=== PATIENT | male | born 1945 | race Caucasian/White ===

== ENCOUNTER → 2017-12-16 | Day surgery (SDC) | payer MEDICARE ==
[~2017-12-16] MED LIST: AMLO10TA6 PO; CALC250T PO; CITA20TA6 PO; DOXA2TAB2 PO; GARL400T4 PO; GLIP-112 PO; HYDR12.53 PO; IRBE300T3 PO; IV RINGERS,LACTATED 1000ML 1,000 ML IV SCH; LIDOCAINE 2% PF 2ML VIAL. ONE; LISI-334 PO; MAGN400C PO; METF10007 PO; MULT-658 PO; OXYB5TAB7 PO; PARO20TA3 PO; PROPOFOL 40 ML IV ONE
[2017-12-16 10:32] VITALS: BP 120/56
== END | disposition home or self-care (01) ==
LOC: ENDOS 07:45
PROVIDERS: ATTEND Internal Medicine Gastroenterology
DX: Z12.11 Encounter for screening for malignant neoplasm of colon (principal); K64.0 First degree hemorrhoids; D17.79 Benign lipomatous neoplasm of other sites; E11.9 Type 2 diabetes mellitus without complications; I10 Essential (primary) hypertension; E66.9 Obesity, unspecified; E11.319 Type 2 diabetes mellitus with unspecified diabetic retinopathy without macular edema; F32.89 Other specified depressive episodes; Z86.010 Personal history of colon polyps; Z82.3 Family history of stroke; Z79.84 Long term (current) use of oral hypoglycemic drugs; Z79.899 Other long term (current) drug therapy; Z79.82 Long term (current) use of aspirin; R60.0 Localized edema
CPT/HCPCS: 45378; J2001; J2704

== ENCOUNTER 2018-05-01 22:50 | Inpatient (IN) | payer MEDICARE ==
[~2018-05-01] VITALS: Ht 172.7 cm; Wt 150.6 kg
[~2018-05-01 22:50] MED LIST changes: -AMLO10TA6 PO; +AMLO10TA8 PO; -GARL400T4 PO; -GLIP-112 PO; +GLIP10TA24 PO; -HYDR12.53 PO; +HYDR12.575 PO; -IV RINGERS,LACTATED 1000ML 1,000 ML IV SCH; -LIDOCAINE 2% PF 2ML VIAL. ONE; -PROPOFOL 40 ML IV ONE; +[UNRECOGNIZED DRUG - CODE] PO
[2018-05-02] MEDS ORDERED: PIPERACILLIN/TAZOBACTAM 3.375 GM in IV NORMAL SALINE 50ML 50 ML IV ONE (00:30)
[2018-05-02] MEDS ORDERED: IV NORMAL SALINE 1000ML BAG 1,000 ML IV ONE ×2 (00:30→14:45)
[2018-05-02] MEDS ORDERED: fentaNYL PF VIAL 100 MCG/2 ML VIAL IV ONE (00:30)
[2018-05-02] MEDS ORDERED: VANCOMYCIN 2 GM in IV NORMAL SALINE 500ML BAG 500 ML IV ONE (00:30)
[2018-05-02] MEDS ORDERED: fentaNYL PF VIAL 100 MCG/2 ML VIAL ONE (01:11)
[2018-05-02 04:19] VITALS: BP 156/61
[2018-05-02] MEDS ORDERED: METF500T16 PO (05:01)
[2018-05-02] MEDS: fentaNYL PF VIAL 100 MCG/2 ML VIAL IV PRN ×3 (06:20→21:33)
[2018-05-02 06:43] LABS: ALBUMIN 3.4 g/dL (3.4-5.0); ALBUMIN/GLOBULIN RATIO 0.9 (1.0-1.7); CALCIUM 9.6 mg/dL (8.5-10.1); CREATININE 1.7 mg/dL (0.7-1.3); GFR 39.8; POTASSIUM 4.1 mmol/L (3.5-5.1); TOTAL BILIRUBIN 0.6 mg/dL (0.2-1.0)
[2018-05-02 06:48] LABS: BASO % 0 % (0-3); EOS % 0 % (0-3); HEMATOCRIT 27.5 % (39.0-53.0); HEMOGLOBIN 9.1 g/dL (13.0-17.5); LYMPH # 0.1 x10^3/uL (1.0-4.8); LYMPH % 2 % (24-48); MEAN CORPUSCULAR HEMOGLOBIN 31 pg (25-35); MEAN CORPUSCULAR HGB CONC 33 g/dL (31-37); MEAN CORPUSCULAR VOLUME 93 fL (79-100); MONO # 0.4 x10^3/uL (0.0-1.1); MONO % 5 % (0-9); NEUT # 7.7 x10^3uL (1.8-7.7); NEUT % 93 % (31-73); PLATELET COUNT 132 x10^3/uL (140-400); RED BLOOD COUNT 2.97 x10^6/uL (4.30-5.70); RED CELL DISTRIBUTION WIDTH 14.5 % (11.5-14.5); WHITE BLOOD COUNT 8.2 x10^3/uL (4.0-11.0)
[2018-05-02 06:50] LABS: PROTHROMBIN TIME PATIENT 14.3 SEC (11.7-14.0)
[2018-05-02 06:53] LABS: BILIRUBIN,URINE NEGATIVE (NEG); CLARITY,URINE CLEAR; COLOR,URINE YELLOW
[2018-05-02 06:54] LABS: BACTERIA,URINE 0 /HPF (0-FEW); HYALINE CASTS, URINE FEW /HPF; NITRITE,URINE NEGATIVE (NEG); PROTEIN,URINE NEGATIVE (NEG-TRACE); RBC,URINE OCC /HPF (0-2); SQUAMOUS EPITHELIAL CELL,UR FEW /LPF; UROBILINOGEN,URINE 0.2 mg/dL (0.2 mg/dL); WBC,URINE OCC /HPF (0-4)
[2018-05-02 07:00] VITALS: BP 138/58
--- NOTE | 2018-05-02 07:51 | RAD ---
Portable chest, 05/02/2018: HISTORY: Lower extremity swelling, check for fluid in chest. The heart is at the upper limits of normal in size. The pulmonary vascularity is normal. No pulmonary infiltrate is seen. There is no evidence of pleural fluid. Mild spurring is present in the spine. IMPRESSION: No acute cardiopulmonary abnormality is detected. Electronically signed by: Shmuel Cerna MD (05/02/2018 7:48 AM) [facility]
[2018-05-02 09:18] LABS: % BANDS 32 % (0-9); % LYMPHS 2 % (24-48); % MONOS 7 % (0-10); % SEGS 59 % (35-66)
[2018-05-02 09:19] LABS: ACANTHOCYTES OCC; BURR CELLS FEW; OVALOCYTES FEW; PLT ESTIMATE ADEQUATE (ADEQUATE); SCHISTOCYTES OCC; TEAR DROP CELLS OCC
[2018-05-02] MEDS ORDERED: ONDANSETRON PF 4 MG/2 ML VIAL. IV PRN (09:30)
[2018-05-02] MEDS ORDERED: ONDANSETRON ODT 4 MG TAB.RAPDIS. PO PRN (09:30)
[2018-05-02] MEDS ORDERED: hydroCHLOROthiazide 12.5 MG CAPSULE PO SCH (10:00)
[2018-05-02] MEDS ORDERED: CITALOPRAM 20 MG TABLET. PO SCH (10:00)
[2018-05-02] MEDS: PARoxetine 20 MG TABLET PO SCH (10:11)
[2018-05-02] MEDS: ACETAMINOPHEN 500 MG TABLET PO PRN (10:11)
[2018-05-02] MEDS: glipiZIDE ER 2.5 MG TAB.ER.24 PO SCH (10:11)
[2018-05-02] MEDS: CALCIUM CARBONATE 500 MG TABLET PO SCH (10:11)
[2018-05-02] MEDS: MAGNESIUM OXIDE 400 MG TABLET PO SCH (10:11)
[2018-05-02] MEDS: MULTIVITAMIN with MINERAL TABLET. PO SCH (10:11)
[2018-05-02] MEDS: LISINOPRIL 20 MG TABLET PO SCH (10:11)
[2018-05-02] MEDS: amLODIPine BESYLATE 10 MG TABLET PO SCH (10:11)
[2018-05-02] MEDS: OXYBUTYNIN CHLORIDE 5 MG TABLET PO SCH (10:12)
[2018-05-02] MEDS: DOXAZOSIN MESYLATE 1 MG TABLET. PO SCH (10:12)
[2018-05-02 11:00] VITALS: BP 117/40
[2018-05-02] MEDS: VANCOMYCIN PER PHARMACY MC PRN ×2 (13:21→13:45)
--- NOTE | 2018-05-02 13:43 | NUR ---
Pharmacy Vancomycin Dosing Note S:Consulted to monitor and dose vancomycin started 05/02/18. O:AMRITA BONILLA is a 72 year old M with Cellulitis . Height: 5 feet, 8 inches Weight: 150.231588 kg [place] Body Weight: 68.40 Adjusted Body Weight: 101.12 Dosing Weight: Actual Other Antibiotics: LABS: Last BUN: 35 Last Creatinine: 1.7 Creatinine Clearance: 56.2 mL/min Last WBC: 8.2 Last Procalcitonin: Tmax (past 24 hours): 98.2 Microbiology: I/O: Drug Levels: Last level: on at Last dose given 05/02/18 at 0030 Vancomycin Dosing: Loading Dose: 2000 mg x1 Dosing Weight: Actual Target Trough: 10-20 A: Based on weight and est. CrCl P: 1. Begin Vancomycin 2000 mg IV q24h. 2. Follow up Trough level on 05/04/18 at 0030 3. Pharmacy will continue to monitor, follow and adjust therapy as needed. Rodriguez Munson, [facility], 05/02/18 [id number]
--- NOTE | 2018-05-02 14:22 | NUR ---
SW following pt for anticipated dc needs. Chart reviewed. Pt lives at home with spouse/family and is on room air. PT/OT pending. SW will await for PT/OT recommendation to assess dc needs. Will continue to follow.
--- NOTE | 2018-05-02 14:50 | PDOC1 ---
History and Physical Date of Admission Date of Admission DATE: 05/02/18 TIME: 14:44 Identification/Chief Complaint Chief Complaint Right leg redness and rash Source Source: Caregiver, Chart review, Patient History of Present Illness History of Present Illness 72-year-old male, WBC obese, lives with , diabetes type 2 on OHA previously on insulin but with good A1c was taken off of insulin by PCP. Acute onset fast spreading rash started from the right dorsal foot up to the right leg. He claims there is a cat and also a visitor cat Which might have scratched his leg or might have had fleas and he thought he saw or felt fleas nibbling his right leg. In any case some temperatures at home 102, afebrile here. No leukocytosis. Sedimentation rate is pending. No history of cellulitis in the past. Diabetes again with unknown hemoglobin A1c but recently taken off of insulin Fell off or rolled over this morning and has not beared weight, concerns about injuring right ankle Creat 1,.7, PCP Dr Alvarez, news to him, JUst had labs at PCP office recently and was told "everything fine" Past Medical History Cardiovascular: HTN, Hyperlipidemia Pulmonary: Bronchitis Endocrine: Diabetes Past Surgical History Past Surgical History: No pertinent history Family History Family History: High Cholestrol, Hypertension Social History Smoke: No ALCOHOL: none Drugs: None Current Medications Current Medications Current Medications Fentanyl Citrate (Fentanyl 2ml Vial) 100 mcg STK-MED ONCE .ROUTE ; Start at 01:11; Stop 05/02/18 at 02:50; Status DC Sodium Chloride 1,000 ml @ 100 mls/hr 1X ONCE IV Last administered on at 00:30; Start 05/02/18 at 00:30; Stop 05/02/18 at 10:29; Status DC Fentanyl Citrate (Fentanyl 2ml Vial) 25 mcg 1X ONCE IV Last administered on 03/08at 00:30; Start 05/02/18 at 00:30; Stop 05/02/18 at 03:06; Status DC Vancomycin HCl 2 gm/Sodium Chloride 500 ml @ 250 mls/hr 1X ONCE IV Last administered on 05/02/18at 00:30; Start 05/02/18 at 00:30; Stop 05/02/18 at 03:06 ; Status DC Piperacillin Sod/ Tazobactam Sod 3.375 gm/Sodium Chloride 50 ml @ 100 mls/hr 1X ONCE IV Last administered on 05/02/18 00:30; Start 05/02/18 at 00:30; Stop 05/02/18 at 03:06; Status DC Vancomycin HCl (Vanco Per Pharmacy) 1 each PRN DAILY PRN MC SEE COMMENTS Last administered on 05/02/18at 13:45; Start 05/02/18 at 00:30 Fentanyl Citrate (Fentanyl 2ml Vial) 50 mcg PRN Q2HR PRN IV PAIN Last administered on 05/02/18at 06:20; Start 05/02/18 at 06:15 Acetaminophen (Tylenol) 500 mg PRN Q6HRS PRN PO MILD PAIN / TEMP Last administered on 05/02/18at 10:11; Start 05/02/18 at 09:30 Ondansetron HCl (Zofran) 4 mg PRN Q6HRS PRN IV NAUSEA/VOMITING; Start 05/02/18 at 09:30 Ondansetron HCl (Zofran Odt) 4 mg PRN Q6HRS PRN PO NAUSEA/VOMITING; Start 05/02 at 09:30 Amlodipine Besylate (Norvasc) 10 mg DAILY PO Last administered on 05/02/18at 10: 11; Start 05/02/18 at 10:00 Citalopram Hydrobromide (CeleXA) 20 mg DAILY PO ; Start 05/02/18 at 10:00; Status Cancel Hydrochlorothiazide (Microzide) 25 mg DAILY PO ; Start 05/02/18 at 10:00; Stop 05/02/18 at 10:00; Status DC Oxybutynin Chloride (Ditropan) 5 mg DAILY PO Last administered on 05/02/18at 10: 12; Start 05/02/18 at 10:00 Calcium Carbonate/ Glycine (Oscal) 500 mg DAILY PO Last administered on at 10:11; Start 05/02/18 at 10:00 Doxazosin Mesylate (Cardura) 2 mg DAILY PO Last administered on 05/02/18at 10:12 ; Start 05/02/18 at 10:00 Non-Formulary Medication (Garlic ) 400 mg DAILY PO ; Start 05/03/18 at 09:00; Status UNV Glipizide (Glucotrol Er) 10 mg DAILY08 PO Last administered on 05/02/18at 10:11 ; Start 05/02/18 at 10:00 Magnesium Oxide (Magnesium Oxide) 400 mg DAILY PO Last administered on at 10:11; Start 05/02/18 at 10:00 Multivitamins (Thera M Plus) 1 tab DAILY PO Last administered on 05/02/18at 10: 11; Start 05/02/18 at 10:00 Paroxetine HCl (Paxil) 20 mg DAILY PO Last administered on 05/02/18at 10:11; Start 05/02/18 at 10:00 Lisinopril (Prinivil) 20 mg DAILY PO Last administered on 05/02/18at 10:11; Start 05/02/18 at 10:00 Hydrochlorothiazide (Hydrodiuril) 25 mg DAILY PO ; Start 05/02/18 at 10:00 Vancomycin HCl 2 gm/Sodium Chloride 500 ml @ 250 mls/hr Q24H IV ; Start at 01:00 Vancomycin HCl (Vancomycin Trough Level) 1 each 1X ONCE MC ; Start 05/04/18 at 00:30; Stop 05/04/18 at 00:31 Active Scripts Active Reported Metformin Hcl 500 Mg Tablet 500 Mg PO DAILYAC Garlic 400 Mg Tablet 400 Mg PO DAILY Magnesium (Magnesium Oxide) 400 Mg Capsule 1 Cap PO DAILY Calcium Citrate 250 Mg Tablet 600 Mg PO DAILY Centrum Silver Tablet (Multivits-Min/Fa/Lycopene/Lut) 1 Each Tablet 1 Each PO DAILY Irbesartan 300 Mg Tablet 300 Mg PO DAILY Glipizide Er (Glipizide) 10 Mg Tab.er.24 1 Tab PO DAILY Oxybutynin Chloride 5 Mg Tablet 1 Tab PO DAILY Amlodipine Besylate 10 Mg Tablet 10 Mg PO DAILY Paroxetine Hcl 20 Mg Tablet 1 Tab PO DAILY Hydrochlorothiazide Capsule (Hydrochlorothiazide) 12.5 Mg Capsule 25 Mg PO DAILY Doxazosin Mesylate 2 Mg Tablet 1 Tab PO DAILY Lisinopril 20 Mg Tablet 1 Tab PO DAILY Allergies Allergies: Coded Allergies: No Known Drug Allergies (Unverified , 12/16/17) ROS Review of System As per history of present illness, the rest of ROS 14 point negative Physical Exam General: Alert, Oriented X3, Cooperative, No acute distress HEENT: PERRLA, EOMI Lungs: Clear to auscultation, Normal air movement Heart: S1S2, RRR, no thrills, no rubs, no gallops, no murmurs Cardiovascular: S1, S2 Abdomen: Normal bowel sounds, Soft, No tenderness, No hepatosplenomegaly, No masses Male Genitals Exam: normal genitalia, normal prostate Rectal Exam: not examined PELVIC: Nml ext genitalia Skin: Other (right leg has erythematous red flat rash with no skin breakage or foul-smelling discharge, also some rash on the right dorsal foot, long toenails) Neuro: Normal gait, Normal speech, Strength at 5/5 X4 ext, Normal tone, Sensation intact, Cranial nerves 3-12 NL, Reflexes 2+ Psych/Mental Status: Mental status NL, Mood NL Vitals Vitals Vital Signs Date Time Temp Pulse Resp B/P (MAP) Pulse Ox O2 Delivery O2 Flow Rate FiO2 05/02/18 11:00 97.8 68 18 117/40 (65) 98 Room Air 97.8 05/02/18 08:00 1.5 Labs Labs Laboratory Tests Test 05/01/18 23:05 05/02/18 00:40 05/02/18 07:21 05/02/18 09:50 White Blood Count 8.2 x10^3/uL (4.0-11.0) Red Blood Count 2.97 x10^6/uL (4.30-5.70) Hemoglobin 9.1 g/dL (13.0-17.5) Hematocrit 27.5 % (39.0-53.0) Mean Corpuscular Volume 93 fL (79-100) Mean Corpuscular Hemoglobin 31 pg (25-35) Mean Corpuscular Hemoglobin Concent 33 g/dL (31-37) Red Cell Distribution Width 14.5 % (11.5-14.5) Platelet Count 132 x10^3/uL (140-400) Neutrophils (%) (Auto) 93 % (31-73) Lymphocytes (%) (Auto) 2 % (24-48) Monocytes (%) (Auto) 5 % (0-9) Eosinophils (%) (Auto) 0 % (0-3) Basophils (%) (Auto) 0 % (0-3) Neutrophils # (Auto) 7.7 x10^3uL (1.8-7.7) Lymphocytes # (Auto) 0.1 x10^3/uL (1.0-4.8) Monocytes # (Auto) 0.4 x10^3/uL (0.0-1.1) Eosinophils # (Auto) 0.0 x10^3/uL (0.0-0.7) Basophils # (Auto) 0.0 x10^3/uL (0.0-0.2) Segmented Neutrophils % 59 % (35-66) Band Neutrophils % 32 % (0-9) Lymphocytes % 2 % (24-48) Monocytes % 7 % (0-10) Platelet Estimate Adequate (ADEQUATE) Tear Drop Cells Occ Ovalocytes Few Iron Cells Few Acanthocytes Occ Schistocytes Occ Prothrombin Time 14.3 SEC (11.7-14.0) Prothromb Time International Ratio 1.1 (0.8-1.1) Activated Partial Thromboplast Time 29 SEC (24-38) Urine Collection Type Unknown Urine Color Yellow Urine Clarity Clear Urine pH 5.0 Urine Specific [place] 1.020 Urine Protein Negative mg/dL (NEG-TRACE) Urine Glucose (UA) >=1000 mg/dL (NEG) Urine Ketones (Stick) Negative mg/dL (NEG) Urine Blood Trace (NEG) Urine Nitrite Negative (NEG) Urine Bilirubin Negative (NEG) Urine Urobilinogen Dipstick 0.2 mg/dL (0.2 mg/dL) Urine Leukocyte Esterase Negative (NEG) Urine RBC Occ /HPF (0-2) Urine WBC Occ /HPF (0-4) Urine Squamous Epithelial Cells Few /LPF Urine Bacteria 0 /HPF (0-FEW) Urine Hyaline Casts Few /HPF Urine Mucus Mod /LPF Sodium Level 139 mmol/L (136-145) Potassium Level 4.1 mmol/L (3.5-5.1) Chloride Level 103 mmol/L (98-107) Carbon Dioxide Level 21 mmol/L (21-32) Anion Gap 15 (6-14) Blood Urea Nitrogen 35 mg/dL (8-26) Creatinine 1.7 mg/dL (0.7-1.3) Estimated GFR (Cockcroft-Gault) 39.8 BUN/Creatinine Ratio 21 (6-20) Glucose Level 258 mg/dL (70-99) Calcium Level 9.6 mg/dL (8.5-10.1) Total Bilirubin 0.6 mg/dL (0.2-1.0) Aspartate Amino Transf (AST/SGOT) 17 U/L (15-37) Alanine Aminotransferase (ALT/SGPT) 18 U/L (16-63) Alkaline Phosphatase 56 U/L (46-116) Creatine Kinase 138 U/L (39-308) Troponin I Quantitative 0.054 ng/mL (0.000-0.055) Total Protein 7.0 g/dL (6.4-8.2) Albumin 3.4 g/dL (3.4-5.0) Albumin/Globulin Ratio 0.9 (1.0-1.7) Lactic Acid Level 1.4 mmol/L (0.4-2.0) Glucose (Fingerstick) 179 mg/dL (70-99) Erythrocyte Sedimentation Rate 50 (0-15) Test 05/02/18 12:33 Glucose (Fingerstick) 187 mg/dL (70-99) Laboratory Tests Test 05/01/18 23:05 05/02/18 00:40 05/02/18 07:21 05/02/18 09:50 White Blood Count 8.2 x10^3/uL (4.0-11.0) Red Blood Count 2.97 x10^6/uL (4.30-5.70) Hemoglobin 9.1 g/dL (13.0-17.5) Hematocrit 27.5 % (39.0-53.0) Mean Corpuscular Volume 93 fL (79-100) Mean Corpuscular Hemoglobin 31 pg (25-35) Mean Corpuscular Hemoglobin Concent 33 g/dL (31-37) Red Cell Distribution Width 14.5 % (11.5-14.5) Platelet Count 132 x10^3/uL (140-400) Neutrophils (%) (Auto) 93 % (31-73) Lymphocytes (%) (Auto) 2 % (24-48) Monocytes (%) (Auto) 5 % (0-9) Eosinophils (%) (Auto) 0 % (0-3) Basophils (%) (Auto) 0 % (0-3) Neutrophils # (Auto) 7.7 x10^3uL (1.8-7.7) Lymphocytes # (Auto) 0.1 x10^3/uL (1.0-4.8) Monocytes # (Auto) 0.4 x10^3/uL (0.0-1.1) Eosinophils # (Auto) 0.0 x10^3/uL (0.0-0.7) Basophils # (Auto) 0.0 x10^3/uL (0.0-0.2) Segmented Neutrophils % 59 % (35-66) Band Neutrophils % 32 % (0-9) Lymphocytes % 2 % (24-48) Monocytes % 7 % (0-10) Platelet Estimate Adequate (ADEQUATE) Tear Drop Cells Occ Ovalocytes Few [place] Cells Few Acanthocytes Occ Schistocytes Occ Prothrombin Time 14.3 SEC (11.7-14.0) Prothromb Time International Ratio 1.1 (0.8-1.1) Activated Partial Thromboplast Time 29 SEC (24-38) Urine Collection Type Unknown Urine Color Yellow Urine Clarity Clear Urine pH 5.0 Urine Specific [place] 1.020 Urine Protein Negative mg/dL (NEG-TRACE) Urine Glucose (UA) >=1000 mg/dL (NEG) Urine Ketones (Stick) Negative mg/dL (NEG) Urine Blood Trace (NEG) Urine Nitrite Negative (NEG) Urine Bilirubin Negative (NEG) Urine Urobilinogen Dipstick 0.2 mg/dL (0.2 mg/dL) Urine Leukocyte Esterase Negative (NEG) Urine RBC Occ /HPF (0-2) Urine WBC Occ /HPF (0-4) Urine Squamous Epithelial Cells Few /LPF Urine Bacteria 0 /HPF (0-FEW) Urine Hyaline Casts Few /HPF Urine Mucus Mod /LPF Sodium Level 139 mmol/L (136-145) Potassium Level 4.1 mmol/L (3.5-5.1) Chloride Level 103 mmol/L (98-107) Carbon Dioxide Level 21 mmol/L (21-32) Anion Gap 15 (6-14) Blood Urea Nitrogen 35 mg/dL (8-26) Creatinine 1.7 mg/dL (0.7-1.3) Estimated GFR (Cockcroft-Gault) 39.8 BUN/Creatinine Ratio 21 (6-20) Glucose Level 258 mg/dL (70-99) Calcium Level 9.6 mg/dL (8.5-10.1) Total Bilirubin 0.6 mg/dL (0.2-1.0) Aspartate Amino Transf (AST/SGOT) 17 U/L (15-37) Alanine Aminotransferase (ALT/SGPT) 18 U/L (16-63) Alkaline Phosphatase 56 U/L (46-116) Creatine Kinase 138 U/L (39-308) Troponin I Quantitative 0.054 ng/mL (0.000-0.055) Total Protein 7.0 g/dL (6.4-8.2) Albumin 3.4 g/dL (3.4-5.0) Albumin/Globulin Ratio 0.9 (1.0-1.7) Lactic Acid Level 1.4 mmol/L (0.4-2.0) Glucose (Fingerstick) 179 mg/dL (70-99) Erythrocyte Sedimentation Rate 50 (0-15) Test 05/02/18 12:33 Glucose (Fingerstick) 187 mg/dL (70-99) VTE Prophylaxis Ordered VTE Prophylaxis Devices: Yes VTE Pharmacological Prophylaxi: Yes Assessment/Plan Assessment/Plan Right leg cellulitis, acute onset fast spreading-top differential includes group B [id number] blood cultures drawn at ER Diabetes type 2 on metformin-hemoglobin A1c? - recently taken off of insulin BMI 50.4, obesity Hypertension, controlled SIRS POA AK I/VMN-creatinine 1.7 unknown baseline Plan: admit 2 mN. I did shift to IV Rocephin in terms of vancomycin given kidney function Get record from Dr. alvarez regarding recent creatinine which was done maybe in the last 2 weeks Consult ID regarding cellulitis and check hemoglobin A1c and sedimentation rate I have reconciled home meds except losartan and metformin given creatinine function Patient verifies with me or clarifies to be he is not taking lisinopril anymore sec to cough Add PTOT DELFINA MERA MD May 02, 2018 14:50
[2018-05-02 15:00] VITALS: BP 117/44
[2018-05-02] MEDS: cefTRIAXone IV Push 1 GM VIAL. IVP SCH (15:46)
--- NOTE | 2018-05-02 16:24 | NUR ---
Wound Care Wound care consult for head wound. Pt has abrasion from fall on top of head that is scabbed. Painted with skin prep and left JASWINDER. No other wounds noted on full skin inspection. Pt c/o soreness on backside from laying in one place, used wedge to turn to right side and floated heels. RN will order P bed if pt is to remain inpatient. Educated pt on PU prevention. WC will follow up for possible changes.
--- NOTE | 2018-05-02 16:38 | RAD ---
EXAM: Right ankle, 2 views. HISTORY: Fall. Infection. COMPARISON: None. FINDINGS: 2 views of the right ankle are obtained. There is no acute fracture, dislocation or subluxation. No osteochondral lesion is seen. There is a small plantar spur. There is dorsal forefoot and diffuse ankle soft tissue swelling, a component of which may due to a dependent edema. There are vascular calcifications. IMPRESSION: 1. Dorsal forefoot and diffuse ankle soft tissue swelling. 2. Small plantar spur. 3. No acute osseous finding. Electronically signed by: Isa Guillory MD (05/02/2018 4:35 PM) [id number]
--- NOTE | 2018-05-02 19:08 | EKG ---
[facility] [address] [place] [address] Test Date: 2018-05-02 Test Time: 01:21:23 Pat Name: AMRITA BONILLA Department: Room: 4 1 Gender: M Clinical Supervisor: : 1945 Requested By: RAINER BENZ Order Number: [id number] Reading MD: Sumit Catherine MD Measurements Intervals [place] Rate: 85 P: 19 GA: 282 QRS: -58 QRSD: 92 T: 42 QT: 338 QTc: 407 Interpretive Statements SINUS RHYTHM 1ST DEGREE AVB LAD POOR R WAVE PROGRESSION Electronically Signed On 05-04-2018 13:53:56 [employer] by Sumit Catherine MD
[2018-05-02 19:15] VITALS: BP 130/47
[2018-05-02 23:35] VITALS: BP 156/53
[2018-05-03] MEDS ORDERED: VANCOMYCIN 2 GM in IV NORMAL SALINE 500ML BAG 500 ML IV SCH (01:00)
[2018-05-03] MEDS: ACETAMINOPHEN 500 MG TABLET PO PRN (03:00)
[2018-05-03 03:05] VITALS: BP 160/55
[2018-05-03 07:15] VITALS: BP 134/60
[2018-05-03 07:28] LABS: CALCIUM 8.9 mg/dL (8.5-10.1); CREATININE 1.9 mg/dL (0.7-1.3); POTASSIUM 3.5 mmol/L (3.5-5.1)
[2018-05-03] MEDS: glipiZIDE ER 2.5 MG TAB.ER.24 PO SCH ×2 (08:00→08:23)
[2018-05-03] MEDS: MAGNESIUM OXIDE 400 MG TABLET PO SCH (08:23)
[2018-05-03] MEDS: LISINOPRIL 20 MG TABLET PO SCH (08:23)
[2018-05-03] MEDS: MULTIVITAMIN with MINERAL TABLET. PO SCH (08:24)
[2018-05-03] MEDS: CALCIUM CARBONATE 500 MG TABLET PO SCH (08:24)
[2018-05-03] MEDS: DOXAZOSIN MESYLATE 1 MG TABLET. PO SCH (08:24)
[2018-05-03] MEDS: hydroCHLOROthiazide 25 MG TABLET PO SCH (08:24)
[2018-05-03] MEDS: PARoxetine 20 MG TABLET PO SCH (08:25)
[2018-05-03] MEDS: OXYBUTYNIN CHLORIDE 5 MG TABLET PO SCH (08:25)
[2018-05-03] MEDS: amLODIPine BESYLATE 10 MG TABLET PO SCH (08:27)
[2018-05-03] MEDS ORDERED: GLIP5TAB22 PO (08:32)
[2018-05-03] MEDS ORDERED: GARLIC 400 MG PO SCH (09:00)
--- NOTE | 2018-05-03 09:00 | NUR ---
Pt refused P500 Bed. Educated about usefulness of bed with pressure distribution but pt wants to stay on hospital bed. Will continue to monitor.
--- NOTE | 2018-05-03 09:26 | PDOC ---
Infectious Disease Note Vital Signs: Vital Signs Vital Signs Date Time Temp Pulse Resp B/P (MAP) Pulse Ox O2 Delivery O2 Flow Rate FiO2 05/03/18 08:27 73 134/60 05/03/18 07:15 98.7 18 93 Nasal Cannula 1.0 98.7 Medications: Inpatient Meds: Current Medications Medications (Trade) Dose Ordered Sig/Hill Start Time Stop Time Status Last Admin Dose Admin Acetaminophen (Tylenol) 500 mg PRN Q6HRS PRN 05/02/18 09:30 05/03/18 03:00 500 MG Amlodipine Besylate (Norvasc) 10 mg DAILY 05/02/18 10:00 05/03/18 08:27 10 MG Calcium Carbonate/ Glycine (Oscal) 500 mg DAILY 05/02/18 10:00 05/03/18 08:24 500 MG Ceftriaxone Sodium (Rocephin) 2 gm Q24H 05/02/18 15:00 05/02/18 15:46 2 GM Citalopram Hydrobromide (CeleXA) 20 mg DAILY 05/02/18 10:00 Cancel Doxazosin Mesylate (Cardura) 2 mg DAILY 05/02/18 10:00 05/03/18 08:24 2 MG Fentanyl Citrate (Fentanyl 2ml Vial) 50 mcg PRN Q2HR PRN 05/02/18 06:15 05/02/18 21:33 50 MCG Glipizide (Glucotrol Er) 10 mg DAILY08 05/02/18 10:00 05/03/18 08:00 10 MG Hydrochlorothiazide (Hydrodiuril) 25 mg DAILY 05/02/18 10:00 05/03/18 08:24 25 MG Hydrochlorothiazide (Microzide) 25 mg DAILY 05/02/18 10:00 05/02/18 10:00 DC Lisinopril (Prinivil) 20 mg DAILY 05/02/18 10:00 05/03/18 08:23 20 MG Magnesium Oxide (Magnesium Oxide) 400 mg DAILY 05/02/18 10:00 05/03/18 08:23 400 MG Multivitamins (Thera M Plus) 1 tab DAILY 05/02/18 10:00 05/03/18 08:24 1 TAB Non-Formulary Medication (Garlic ) 400 mg DAILY 05/03/18 09:00 UNV Ondansetron HCl (Zofran Odt) 4 mg PRN Q6HRS PRN 05/02/18 09:30 Ondansetron HCl (Zofran) 4 mg PRN Q6HRS PRN 05/02/18 09:30 Oxybutynin Chloride (Ditropan) 5 mg DAILY 05/02/18 10:00 05/03/18 08:25 5 MG Paroxetine HCl (Paxil) 20 mg DAILY 05/02/18 10:00 05/03/18 08:25 20 MG Piperacillin Sod/ Tazobactam Sod 3.375 gm/Sodium Chloride 50 ml @ 100 mls/hr 1X ONCE 05/02/18 00:30 05/02/18 03:06 DC 05/02/18 00:30 100 MLS/HR Sodium Chloride 1,000 ml @ 100 mls/hr 1X ONCE 05/02/18 14:45 05/03/18 00:44 DC 05/02/18 15:45 100 MLS/HR Vancomycin HCl (Vanco Per Pharmacy) 1 each PRN DAILY PRN 05/02/18 00:30 05/02/18 14:43 DC 05/02/18 13:45 1 EACH Vancomycin HCl (Vancomycin Trough Level) 1 each 1X ONCE 05/04/18 00:30 05/04/18 00:31 Cancel Vancomycin HCl 2 gm/Sodium Chloride 500 ml @ 250 mls/hr Q24H 05/03/18 01:00 05/03/18 01:00 DC Labs: Lab Laboratory Tests Test 05/02/18 09:50 05/02/18 12:33 05/02/18 17:25 05/02/18 21:04 Erythrocyte Sedimentation Rate 50 (0-15) Glucose (Fingerstick) 187 mg/dL (70-99) 118 mg/dL (70-99) 168 mg/dL (70-99) Test 05/03/18 06:22 05/03/18 07:10 Sodium Level 138 mmol/L (136-145) Potassium Level 3.5 mmol/L (3.5-5.1) Chloride Level 104 mmol/L (98-107) Carbon Dioxide Level 23 mmol/L (21-32) Anion Gap 11 (6-14) Blood Urea Nitrogen 27 mg/dL (8-26) Creatinine 1.9 mg/dL (0.7-1.3) Estimated GFR (Cockcroft-Gault) 35.0 Glucose Level 135 mg/dL (70-99) Calcium Level 8.9 mg/dL (8.5-10.1) Glucose (Fingerstick) 124 mg/dL (70-99) Objective: Assessment: RLE cellulitis BLE venous stasis ELO on CKD Morbid obesity DM Plan: Plan of Care cont rocephin s/p Vanc f/u imaging f/u labs and cults elevate RLE PT and OT as tolerated D?W RN Thank you [phone] TAE SANCHEZ MD May 03, 2018 09:26
--- NOTE | 2018-05-03 10:19 | CONS ---
DATE OF CONSULTATION: 05/03/2018 REFERRING PHYSICIAN: Dr. Victor. REASON FOR CONSULTATION: Right lower extremity cellulitis. HISTORY OF PRESENT ILLNESS: A 72-year-old male with a history of diabetes, poorly controlled; history of noncompliance; chronic venous stasis; chronic knee pain and hip pain; morbid obesity; depression, presented to the ER with complaints of fever of 102 at home and worsening right lower extremity pain, swelling and rash. The patient has a cat and says may have scratched his leg. The patient also had a history of fall prior to admission, a couple of days ago. X-ray of the right ankle showed no fracture, just soft tissue swelling. The patient had a chest x-ray, which showed no acute cardiopulmonary abnormality. He had head and cervical spine CT, report of which is pending at this time. Lower extremity ultrasound report is pending at this time. ESR was 50. White count was 8.2. The patient has remained afebrile here. He received a dose of IV vancomycin and is on ceftriaxone. Creatinine is 1.9. UA was negative. Blood cultures on 05/02/2018 are negative so far. ID has been consulted for antibiotic management. Today, the patient says he feels a little better. Right lower extremity swelling, pain, redness is improved, but not back to baseline. He is wondering when he will be able to get out of his bed. PT and OT is going to assist, per RN. Denies any headache. He has a superficial laceration on the scalp, which he sustained when he fell. He also has a history of skin cancer, status post surgery and removal from the right ear helix, healed well. Denies any nausea, vomiting, diarrhea, abdominal pain, symptoms, other joint pain. Able to ambulate at home with a cane. He also has some kind of nerve damage in both the lower extremity, right greater than the left, he could not give details. PAST MEDICAL HISTORY: Diabetes mellitus, poorly controlled; hypertension; hyperlipidemia; DJD; chronic venous stasis. SOCIAL HISTORY: Denies smoking, ETOH or illicit drug use. Lives with , has a cat. FAMILY HISTORY: As per HPI. CURRENT MEDICATIONS: The patient received vancomycin and Zosyn in the ER. Also received ceftriaxone. Currently on Paxil, lisinopril/hydrochlorothiazide, oxybutynin, calcium carbonate, Cardura, glipizide, magnesium oxide, multivitamin. ALLERGIES: No known drug allergies. REVIEW OF SYSTEMS: Negative except for above in HPI. PHYSICAL EXAMINATION: VITAL SIGNS: Temperature 98.7, T-max 99.4, pulse 73, respiratory rate 18, blood pressure 134/60, oxygen saturation 93% on 1 liter nasal cannula. GENERAL: Alert, oriented x 3 male, lying in bed comfortably, in no acute distress, cooperative. HEENT: Normocephalic, atraumatic, anicteric. Scalp, eschar present over the superior area, no drainage, no surrounding redness. Pupils equal, reactive. No conjunctival icterus. No conjunctival petechia. Oral mucosa moist. No thrush. NECK: Supple, no JVD. LUNGS: Clear bilaterally. No wheezing. HEART: S1, S2 with no gallops or murmurs. ABDOMEN: Soft, obese. Bowel sounds present, nontender, nondistended. EXTREMITIES: Bilateral chronic venous stasis; bilateral lower extremity edema, right greater than the left. Redness with a purplish hue present over the right lower extremity. Redness and swelling has receded from the lines placed previously. Right ankle swelling present, no evidence of decrease in range of motion, no warmth, no redness, no evidence of ongoing septic joint at this time. Right knee, no joint effusion. DERM: Warm, dry, no generalized rash except for above. PSYCHIATRIC: Appropriate mood and affect. NEUROLOGIC: Alert and oriented x 3. Grossly nonfocal. LABORATORY DATA: WBC 8.0, hemoglobin 9.1, hematocrit 27.5, platelets 132, neutrophil 93, ESR 50. Sodium 138, potassium 3.5, chloride 104, bicarbonate 23, BUN 27, creatinine 1.9, glucose 135, calcium 8.9. UA, trace blood. PT 14.3. Micro, blood culture negative so far. IMAGING: CT head, cervical spine pending at this time. Lower extremity ultrasound pending at this time. Chest x-ray: No acute infiltrate. Ankle x-ray: Right dorsal forefoot and diffuse ankle soft tissue swelling, small plantar spur, no acute osseous findings. IMPRESSION: 1. Febrile illness prior to presentation, low-grade fever here. 2. Right lower extremity cellulitis. 3. Renal insufficiency, unknown baseline. 4. Diabetes mellitus 2, poorly controlled. 5. Morbid obesity. 6. Hypertension. 7. History of fall prior to admission. 8. History of skin cancer. 9. Chronic venous stasis. RECOMMENDATIONS: 1. Continue Rocephin. 2. The patient has been dosed with vancomycin in ER and on 05/02/2018, hold off at this time due to ELO. 3. The patient is on paroxetine. We will continue monitoring closely. 4. Follow up imaging. 5. Follow up culture results. 4. Follow up labs in a.m. 5. Continue supportive care. 6. PT and OT as tolerated. 7. Elevate right lower extremity. Thank you, Dr. Victor, for consulting Infectious Disease to participate in this patient's care. If you have any questions, do not hesitate to contact me. TAE SANCHEZ MD DR: JULIA/nts JOB#: [id number] / [id number] TAINA
[2018-05-03 11:30] VITALS: BP 143/62
[2018-05-03] MEDS: IV NORMAL SALINE 1000ML BAG 1,000 ML IV SCH (12:01)
[2018-05-03] MEDS ORDERED: MAGNESIUM HYDROXIDE 2,400 MG/30 ML ORAL.SUSP. PO PRN (12:15)
[2018-05-03] MEDS ORDERED: POLYETHYLENE GLYCOL 3350 17 GM PACKET. PO PRN (12:15)
--- NOTE | 2018-05-03 12:15 | PDOC ---
PROGRESS NOTES Chief Complaint Chief Complaint Right leg cellulitis, acute onset fast spreading-top differential includes group B [id number] blood cultures drawn at ER Diabetes type 2 on metformin-hemoglobin A1c good - recently taken off of insulin BMI 50.4, obesity Hypertension, controlled SIRS POA AK I/VMN-creatinine 1.7 , now 1.9 History of Present Illness History of Present Illness Some back pain today Creatinine now 1.9 from 1.7 ID agreeable with Rocephin Did get vancomycin on admission from the ER Unknown if there is CK D Usually follows with Dr. Call ESR 50 Blood cultures negative preliminary 1 day No fevers Plan: trial of heating pad and Lidoderm patch to back Continue IV Rocephin Recheck BMP tomorrow If this worsens might need renal service-did get Vanco on admission Vitals Vitals Vital Signs Date Time Temp Pulse Resp B/P (MAP) Pulse Ox O2 Delivery O2 Flow Rate FiO2 05/03/18 11:30 98.2 84 20 143/62 (89) 92 Nasal Cannula 1.0 98.2 Physical Exam General: Alert, Oriented X3, Cooperative, No acute distress Heart: Regular rate, Normal S1, Normal S2 Abdomen: Normal bowel sounds, Soft, No tenderness, No hepatosplenomegaly, No masses Extremities: No clubbing, No cyanosis Skin: No rashes, No breakdown, No significant lesion, Other (right leg has erythematous red flat rash with no skin breakage or foul-smelling discharge, also some rash on the right dorsal foot, long toenails) Labs LABS Laboratory Tests Test 05/02/18 12:33 05/02/18 17:25 05/02/18 21:04 05/03/18 06:22 Glucose (Fingerstick) 187 mg/dL (70-99) 118 mg/dL (70-99) 168 mg/dL (70-99) Sodium Level 138 mmol/L (136-145) Potassium Level 3.5 mmol/L (3.5-5.1) Chloride Level 104 mmol/L (98-107) Carbon Dioxide Level 23 mmol/L (21-32) Anion Gap 11 (6-14) Blood Urea Nitrogen 27 mg/dL (8-26) Creatinine 1.9 mg/dL (0.7-1.3) Estimated GFR (Cockcroft-Gault) 35.0 Glucose Level 135 mg/dL (70-99) Calcium Level 8.9 mg/dL (8.5-10.1) Test 05/03/18 07:10 Glucose (Fingerstick) 124 mg/dL (70-99) Review of Systems Review of Systems Back pain, the rest of ROS 14 point negative Comment Review of Relevant I have reviewed the following items stephen (where applicable) has been applied. Labs Laboratory Tests Test 05/01/18 23:05 05/02/18 00:40 05/02/18 07:21 05/02/18 09:50 White Blood Count 8.2 x10^3/uL (4.0-11.0) Red Blood Count 2.97 x10^6/uL (4.30-5.70) Hemoglobin 9.1 g/dL (13.0-17.5) Hematocrit 27.5 % (39.0-53.0) Mean Corpuscular Volume 93 fL (79-100) Mean Corpuscular Hemoglobin 31 pg (25-35) Mean Corpuscular Hemoglobin Concent 33 g/dL (31-37) Red Cell Distribution Width 14.5 % (11.5-14.5) Platelet Count 132 x10^3/uL (140-400) Neutrophils (%) (Auto) 93 % (31-73) Lymphocytes (%) (Auto) 2 % (24-48) Monocytes (%) (Auto) 5 % (0-9) Eosinophils (%) (Auto) 0 % (0-3) Basophils (%) (Auto) 0 % (0-3) Neutrophils # (Auto) 7.7 x10^3uL (1.8-7.7) Lymphocytes # (Auto) 0.1 x10^3/uL (1.0-4.8) Monocytes # (Auto) 0.4 x10^3/uL (0.0-1.1) Eosinophils # (Auto) 0.0 x10^3/uL (0.0-0.7) Basophils # (Auto) 0.0 x10^3/uL (0.0-0.2) Segmented Neutrophils % 59 % (35-66) Band Neutrophils % 32 % (0-9) Lymphocytes % 2 % (24-48) Monocytes % 7 % (0-10) Platelet Estimate Adequate (ADEQUATE) Tear Drop Cells Occ Ovalocytes Few [place] Cells Few Acanthocytes Occ Schistocytes Occ Prothrombin Time 14.3 SEC (11.7-14.0) Prothromb Time International Ratio 1.1 (0.8-1.1) Activated Partial Thromboplast Time 29 SEC (24-38) Urine Collection Type Unknown Urine Color Yellow Urine Clarity Clear Urine pH 5.0 Urine Specific [place] 1.020 Urine Protein Negative mg/dL (NEG-TRACE) Urine Glucose (UA) >=1000 mg/dL (NEG) Urine Ketones (Stick) Negative mg/dL (NEG) Urine Blood Trace (NEG) Urine Nitrite Negative (NEG) Urine Bilirubin Negative (NEG) Urine Urobilinogen Dipstick 0.2 mg/dL (0.2 mg/dL) Urine Leukocyte Esterase Negative (NEG) Urine RBC Occ /HPF (0-2) Urine WBC Occ /HPF (0-4) Urine Squamous Epithelial Cells Few /LPF Urine Bacteria 0 /HPF (0-FEW) Urine Hyaline Casts Few /HPF Urine Mucus Mod /LPF Sodium Level 139 mmol/L (136-145) Potassium Level 4.1 mmol/L (3.5-5.1) Chloride Level 103 mmol/L (98-107) Carbon Dioxide Level 21 mmol/L (21-32) Anion Gap 15 (6-14) Blood Urea Nitrogen 35 mg/dL (8-26) Creatinine 1.7 mg/dL (0.7-1.3) Estimated GFR (Cockcroft-Gault) 39.8 BUN/Creatinine Ratio 21 (6-20) Glucose Level 258 mg/dL (70-99) Calcium Level 9.6 mg/dL (8.5-10.1) Total Bilirubin 0.6 mg/dL (0.2-1.0) Aspartate Amino Transf (AST/SGOT) 17 U/L (15-37) Alanine Aminotransferase (ALT/SGPT) 18 U/L (16-63) Alkaline Phosphatase 56 U/L (46-116) Creatine Kinase 138 U/L (39-308) Troponin I Quantitative 0.054 ng/mL (0.000-0.055) Total Protein 7.0 g/dL (6.4-8.2) Albumin 3.4 g/dL (3.4-5.0) Albumin/Globulin Ratio 0.9 (1.0-1.7) Lactic Acid Level 1.4 mmol/L (0.4-2.0) Glucose (Fingerstick) 179 mg/dL (70-99) Erythrocyte Sedimentation Rate 50 (0-15) Test 05/02/18 12:33 05/02/18 17:25 05/02/18 21:04 05/03/18 06:22 Glucose (Fingerstick) 187 mg/dL (70-99) 118 mg/dL (70-99) 168 mg/dL (70-99) Sodium Level 138 mmol/L (136-145) Potassium Level 3.5 mmol/L (3.5-5.1) Chloride Level 104 mmol/L (98-107) Carbon Dioxide Level 23 mmol/L (21-32) Anion Gap 11 (6-14) Blood Urea Nitrogen 27 mg/dL (8-26) Creatinine 1.9 mg/dL (0.7-1.3) Estimated GFR (Cockcroft-Gault) 35.0 Glucose Level 135 mg/dL (70-99) Calcium Level 8.9 mg/dL (8.5-10.1) Test 05/03/18 07:10 Glucose (Fingerstick) 124 mg/dL (70-99) Laboratory Tests Test 05/02/18 12:33 05/02/18 17:25 05/02/18 21:04 05/03/18 06:22 Glucose (Fingerstick) 187 mg/dL (70-99) 118 mg/dL (70-99) 168 mg/dL (70-99) Sodium Level 138 mmol/L (136-145) Potassium Level 3.5 mmol/L (3.5-5.1) Chloride Level 104 mmol/L (98-107) Carbon Dioxide Level 23 mmol/L (21-32) Anion Gap 11 (6-14) Blood Urea Nitrogen 27 mg/dL (8-26) Creatinine 1.9 mg/dL (0.7-1.3) Estimated GFR (Cockcroft-Gault) 35.0 Glucose Level 135 mg/dL (70-99) Calcium Level 8.9 mg/dL (8.5-10.1) Test 05/03/18 07:10 Glucose (Fingerstick) 124 mg/dL (70-99) Microbiology 05/02/18 Blood Culture - Preliminary, Resulted NO GROWTH AFTER 1 DAY Medications Current Medications Fentanyl Citrate (Fentanyl 2ml Vial) 100 mcg STK-MED ONCE .ROUTE ; Start at 01:11; Stop 05/02/18 at 02:50; Status DC Sodium Chloride 1,000 ml @ 100 mls/hr 1X ONCE IV Last administered on at 00:30; Start 05/02/18 at 00:30; Stop 05/02/18 at 10:29; Status DC Fentanyl Citrate (Fentanyl 2ml Vial) 25 mcg 1X ONCE IV Last administered on 03/08at 00:30; Start 05/02/18 at 00:30; Stop 05/02/18 at 03:06; Status DC Vancomycin HCl 2 gm/Sodium Chloride 500 ml @ 250 mls/hr 1X ONCE IV Last administered on 05/02/18at 00:30; Start 05/02/18 at 00:30; Stop 05/02/18 at 03:06 ; Status DC Piperacillin Sod/ Tazobactam Sod 3.375 gm/Sodium Chloride 50 ml @ 100 mls/hr 1X ONCE IV Last administered on 05/02/18at 00:30; Start 05/02/18 at 00:30; Stop 05/02/18 at 03:06; Status DC Vancomycin HCl (Vanco Per Pharmacy) 1 each PRN DAILY PRN MC SEE COMMENTS Last administered on 05/02/18at 13:45; Start 05/02/18 at 00:30; Stop 05/02/18 at 14:43 ; Status DC Fentanyl Citrate (Fentanyl 2ml Vial) 50 mcg PRN Q2HR PRN IV PAIN Last administered on 05/02/18at 21:33; Start 05/02/18 at 06:15 Acetaminophen (Tylenol) 500 mg PRN Q6HRS PRN PO MILD PAIN / TEMP Last administered on 05/03/18at 03:00; Start 05/02/18 at 09:30 Ondansetron HCl (Zofran) 4 mg PRN Q6HRS PRN IV NAUSEA/VOMITING; Start 05/02/18 at 09:30 Ondansetron HCl (Zofran Odt) 4 mg PRN Q6HRS PRN PO NAUSEA/VOMITING; Start 05/02 at 09:30 Amlodipine Besylate (Norvasc) 10 mg DAILY PO Last administered on 05/03/18at 08: 27; Start 05/02/18 at 10:00 Citalopram Hydrobromide (CeleXA) 20 mg DAILY PO ; Start 05/02/18 at 10:00; Status Cancel Hydrochlorothiazide (Microzide) 25 mg DAILY PO ; Start 05/02/18 at 10:00; Stop 05/02/18 at 10:00; Status DC Oxybutynin Chloride (Ditropan) 5 mg DAILY PO Last administered on 05/03/18 08: 25; Start 05/02/18 at 10:00 Calcium Carbonate/ Glycine (Oscal) 500 mg DAILY PO Last administered on 08:24; Start 05/02/18 at 10:00 Doxazosin Mesylate (Cardura) 2 mg DAILY PO Last administered on 05/03/18 08:24 ; Start 05/02/18 at 10:00 Non-Formulary Medication (Garlic ) 400 mg DAILY PO ; Start 05/03/18 at 09:00; Status UNV Glipizide (Glucotrol Er) 10 mg DAILY08 PO Last administered on 05/03/18 08:00 ; Start 05/02/18 at 10:00; Stop 05/03/18 at 11:27; Status DC Magnesium Oxide (Magnesium Oxide) 400 mg DAILY PO Last administered on 08:23; Start 05/02/18 at 10:00 Multivitamins (Thera M Plus) 1 tab DAILY PO Last administered on 05/03/18 08: 24; Start 05/02/18 at 10:00 Paroxetine HCl (Paxil) 20 mg DAILY PO Last administered on 05/03/18 08:25; Start 05/02/18 at 10:00 Lisinopril (Prinivil) 20 mg DAILY PO Last administered on 05/03/18 08:23; Start 05/02/18 at 10:00 Hydrochlorothiazide (Hydrodiuril) 25 mg DAILY PO Last administered on 08:24; Start 05/02/18 at 10:00 Vancomycin HCl 2 gm/Sodium Chloride 500 ml @ 250 mls/hr Q24H IV ; Start at 01:00; Stop 05/03/18 at 01:00; Status DC Vancomycin HCl (Vancomycin Trough Level) 1 each 1X ONCE MC ; Start 05/04/18 at 00:30; Stop 05/04/18 at 00:31; Status Cancel Ceftriaxone Sodium (Rocephin) 2 gm Q24H IVP Last administered on 05/02/18at 15: 46; Start 05/02/18 at 15:00 Sodium Chloride 1,000 ml @ 100 mls/hr 1X ONCE IV Last administered on at 15:45; Start 05/02/18 at 14:45; Stop 05/03/18 at 00:44; Status DC Sodium Chloride 1,000 ml @ 75 mls/hr [id number] IV Last administered on at 12:01; Start 05/03/18 at 11:00 Glipizide (Glucotrol Er) 5 mg DAILY08 PO ; Start 05/04/18 at 08:00 Active Scripts Active Reported Glipizide Er (Glipizide) 5 Mg Tab.er.24 1 Tab PO DAILY Metformin Hcl 500 Mg Tablet 500 Mg PO DAILYAC Garlic 400 Mg Tablet 400 Mg PO DAILY Magnesium (Magnesium Oxide) 400 Mg Capsule 1 Cap PO DAILY Calcium Citrate 250 Mg Tablet 600 Mg PO DAILY Centrum Silver Tablet (Multivits-Min/Fa/Lycopene/Lut) 1 Each Tablet 1 Each PO DAILY Irbesartan 300 Mg Tablet 300 Mg PO DAILY Oxybutynin Chloride 5 Mg Tablet 1 Tab PO DAILY Amlodipine Besylate 10 Mg Tablet 10 Mg PO DAILY Paroxetine Hcl 20 Mg Tablet 1 Tab PO DAILY Hydrochlorothiazide Capsule (Hydrochlorothiazide) 12.5 Mg Capsule 25 Mg PO DAILY Doxazosin Mesylate 2 Mg Tablet 1 Tab PO DAILY Lisinopril 20 Mg Tablet 1 Tab PO DAILY Vitals/I & O Vital Sign - Last 24 Hours 05/02/18 05/02/18 05/02/18 05/02/18 15:00 19:15 20:00 21:33 Temp 98.0 98.9 98.0 98.9 Pulse 61 75 Resp 18 24 B/P (MAP) 117/44 (68) 130/47 (74) Pulse Ox 98 94 O2 Delivery Room Air Room Air Room Air Room Air 05/02/18 05/02/18 05/03/18 05/03/18 22:04 23:35 03:05 07:15 Temp 99.0 99.4 98.7 99.0 99.4 98.7 Pulse 86 91 73 Resp 24 24 18 B/P (MAP) 156/53 (87) 160/55 (90) 134/60 (84) Pulse Ox 90 91 93 O2 Delivery Room Air Room Air Nasal Cannula Nasal Cannula O2 Flow Rate 1.0 1.0 05/03/18 05/03/18 05/03/18 05/03/18 08:00 08:23 08:24 08:27 Pulse 73 73 73 B/P (MAP) 134/60 134/60 134/60 O2 Delivery Nasal Cannula O2 Flow Rate 1.0 05/03/18 11:30 Temp 98.2 98.2 Pulse 84 Resp 20 B/P (MAP) 143/62 (89) Pulse Ox 92 O2 Delivery Nasal Cannula O2 Flow Rate 1.0 Intake and Output 05/02/18 05/02/18 05/03/18 14:59 22:59 06:59 Intake Total 480 ml 240 ml Output Total 350 ml 300 ml 450 ml Balance 130 ml -60 ml -450 ml DELFINA MERA MD May 03, 2018 12:15
[2018-05-03] MEDS: LIDOCAINE (700MG/PATCH) PATCH. TD SCH (13:17)
--- NOTE | 2018-05-03 14:48 | RAD ---
Examination: Right Lower Extremity Venous Doppler Ultrasound History: Right lower extremity swelling, discoloration Comparison: None Procedure: Fitzgerald scale, color flow 2D and spectal waveform analysis images are obtained with and without compression in the area of the common femoral vein, superficial femoral vein - femoral vein junction, main femoral vein (superficial femoral vein) and popliteal vein. Veins of the proximal calf are also imaged. Findings: There is normal duplex flow, color flow and compressibility of all visualized vein segments. No evidence of deep venous thrombus is present. Limited visualization of the calf veins. 3.2 cm lymph node identified in the proximal thigh likely normal lymph node. Impression: No evidence of DVT. Electronically signed by: Deven Mast MD (05/03/2018 2:45 PM) [place] [id number]
--- NOTE | 2018-05-03 14:53 | RAD ---
EXAM: Head and cervical spine CT without contrast. HISTORY: Pain. Fall. TECHNIQUE: Computed tomographic images the head and cervical spine were obtained without contrast. *One or more of the following individualized dose reduction techniques were utilized for this examination: 1. Automated exposure control. 2. Adjustment of the mA and/or kV according to patient size. 3. Use of iterative reconstruction technique. COMPARISON: None. FINDINGS: Head: There is no hemorrhage. There is no mass effect or midline shift. There is no hydrocephalus. There are subtle areas of hypodensity within the cerebral white matter, likely due to chronic small vessel disease. The orbits are unremarkable. There is a left maxillary sinus mucous retention cysts and mild right maxillary sinus mucosal thickening. The mastoid air cells are clear. Cervical spine: There is cervical kyphosis centered at C4-C5. There is mild anterolisthesis of C3 on C4. There is degenerative endplate remodeling with disc space narrowing, osteophytosis and Schmorl's node formation primarily at C4-C7. There is multilevel facet arthropathy. No displaced fracture is seen. No suspicious lytic or sclerotic osseous lesion is seen. There are few small incidental benign bone islands. There is a diffusely heterogeneous thyroid gland thickening multiple nodules and cysts and calcifications. At C2-C3, there is a disc bulge and endplate osteophytosis. There is moderate to severe right facet arthropathy. There is right uncovertebral arthropathy. There is moderate right foraminal stenosis. At C3-C4, there is a disc bulge and endplate osteophytosis. There is moderate bilateral facet arthropathy. There is bilateral uncovertebral arthropathy. There is moderate bilateral foraminal stenosis. There is mild central canal stenosis. At C4-C5, there is a disc bulge and endplate osteophytosis. There is mild right facet arthropathy. There is bilateral uncovertebral arthropathy. There is mild left foraminal stenosis. At C5-C6, there is a right paracentral disc protrusion superimposed on a disc bulge and endplate osteophytosis. There is bilateral uncovertebral arthropathy. There is moderate right and mild left foraminal stenosis. There is mild to moderate central canal stenosis. At C6-C7, there is a and left paracentral disc osteophyte complex superimposed on a disc bulge and endplate osteophytosis. There is bilateral uncovertebral therapy. There is moderate left foraminal stenosis. IMPRESSION: 1. No acute intracranial finding or evidence of acute cervical spine trauma. 2. Subtle areas of hypodensity within the cerebral white matter, likely due to chronic small vessel disease. 3. Multilevel degenerative change within the cervical spine, resulting in significant stenosis of the aforementioned levels. 4. Heterogeneous thyroid containing multiple nodules and cysts. This can be assessed with a thyroid sonogram. Electronically signed by: Isa Guillory MD (05/03/2018 2:50 PM) [id number]
[2018-05-03 15:26] VITALS: BP 133/56
[2018-05-03] MEDS: cefTRIAXone IV Push 1 GM VIAL. IVP SCH (16:18)
[2018-05-03 19:30] VITALS: BP 131/60
[2018-05-03] MEDS: PATCH REMOVAL. MC SCH (21:00)
[2018-05-03] MEDS: LACTOBACILLUS RHAMNOSUS GG 1 CAPSULE. PO SCH (21:27)
[2018-05-03 23:14] VITALS: BP 164/58
[2018-05-04] MEDS: IV NORMAL SALINE 1000ML BAG 1,000 ML IV SCH ×2 (00:24→14:55)
[2018-05-04] MEDS: fentaNYL PF VIAL 100 MCG/2 ML VIAL IV PRN (00:24)
[2018-05-04 03:16] VITALS: BP 144/52
[2018-05-04 04:54] LABS: BASO % 0 % (0-3); EOS # 0.1 x10^3/uL (0.0-0.7); EOS % 1 % (0-3); HEMATOCRIT 25.1 % (39.0-53.0); HEMOGLOBIN 8.4 g/dL (13.0-17.5); LYMPH # 0.3 x10^3/uL (1.0-4.8); LYMPH % 7 % (24-48); MEAN CORPUSCULAR HEMOGLOBIN 31 pg (25-35); MEAN CORPUSCULAR HGB CONC 33 g/dL (31-37); MEAN CORPUSCULAR VOLUME 92 fL (79-100); MONO # 0.4 x10^3/uL (0.0-1.1); MONO % 10 % (0-9); NEUT # 3.8 x10^3uL (1.8-7.7); NEUT % 81 % (31-73); PLATELET COUNT 120 x10^3/uL (140-400); RED BLOOD COUNT 2.74 x10^6/uL (4.30-5.70); RED CELL DISTRIBUTION WIDTH 14.4 % (11.5-14.5); WHITE BLOOD COUNT 4.7 x10^3/uL (4.0-11.0)
[2018-05-04] MEDS ORDERED: cefTRIAXone IV Push 2 GM VIAL. IVP SCH (05:00)
[2018-05-04 05:08] LABS: CALCIUM 8.3 mg/dL (8.5-10.1); CREATININE 1.7 mg/dL (0.7-1.3); GFR 39.8; POTASSIUM 3.7 mmol/L (3.5-5.1)
[2018-05-04 05:52] LABS: % BANDS 3 % (0-9); % BASOS 1 % (0-3); % LYMPHS 5 % (24-48); % MONOS 5 % (0-10); % SEGS 86 % (35-66); PLT ESTIMATE DECREASED (ADEQUATE)
[2018-05-04 07:24] VITALS: BP 152/68
--- NOTE | 2018-05-04 08:17 | PDOC ---
Infectious Disease Note Subjective: Subjective pt says feels little better less redness and swelling of the RLE No fever or chills no n/v/d ROS: ROS Negative except for above. Vital Signs: Vital Signs Vital Signs Date Time Temp Pulse Resp B/P (MAP) Pulse Ox O2 Delivery O2 Flow Rate FiO2 05/04/18 07:24 99.6 84 22 152/68 (96) 94 Room Air 99.6 05/03/18 11:30 1.0 Physical Exam: PHYSICAL EXAM GENERAL: Alert, oriented x 3 male, lying in bed comfortably, in no acute distress, cooperative. HEENT: Normocephalic, atraumatic, anicteric. Scalp, eschar present over the superior area, no drainage, no surrounding redness. Pupils equal, reactive. No conjunctival icterus. No conjunctival petechia. Oral mucosa moist. No thrush. NECK: Supple, no JVD. LUNGS: Clear bilaterally. No wheezing. HEART: S1, S2 with no gallops or murmurs. ABDOMEN: Soft, obese. Bowel sounds present, nontender, nondistended. EXTREMITIES: Bilateral chronic venous stasis; bilateral lower extremity edema, right greater than the left. Redness with a purplish hue present over the right lower extremity. Redness and swelling has receded from the lines placed previously. Right ankle swelling present, no evidence of decrease in range of motion, no warmth, no redness, no evidence of ongoing septic joint at this time. Right knee, no joint effusion. DERM: Warm, dry, no generalized rash except for above. PSYCHIATRIC: Appropriate mood and affect. NEUROLOGIC: Alert and oriented x 3. Grossly nonfocal. Medications: Inpatient Meds: Current Medications Medications (Trade) Dose Ordered Sig/Hill Start Time Stop Time Status Last Admin Dose Admin Acetaminophen (Tylenol) 500 mg PRN Q6HRS PRN 05/02/18 09:30 05/03/18 03:00 500 MG Amlodipine Besylate (Norvasc) 10 mg DAILY 05/02/18 10:00 05/03/18 08:27 10 MG Calcium Carbonate/ Glycine (Oscal) 500 mg DAILY 05/02/18 10:00 05/03/18 08:24 500 MG Ceftriaxone Sodium (Rocephin) 2 gm Q24H 05/04/18 15:00 Citalopram Hydrobromide (CeleXA) 20 mg DAILY 05/02/18 10:00 Cancel Doxazosin Mesylate (Cardura) 2 mg DAILY 05/02/18 10:00 05/03/18 08:24 2 MG Fentanyl Citrate (Fentanyl 2ml Vial) 50 mcg PRN Q2HR PRN 05/02/18 06:15 05/04/18 00:24 50 MCG Glipizide (Glucotrol Er) 5 mg DAILY08 05/04/18 08:00 Hydrochlorothiazide (Hydrodiuril) 25 mg DAILY 05/02/18 10:00 05/03/18 08:24 25 MG Hydrochlorothiazide (Microzide) 25 mg DAILY 05/02/18 10:00 05/02/18 10:00 DC Lactobacillus Rhamnosus (Culturelle) 1 cap BID 05/03/18 21:00 05/03/18 21:27 1 CAP Lidocaine (Lidoderm) 1 patch DAILY 05/03/18 13:00 05/03/18 13:17 1 PATCH Lisinopril (Prinivil) 20 mg DAILY 05/02/18 10:00 05/03/18 08:23 20 MG Magnesium Hydroxide (Milk Of Magnesia) 2,400 mg PRN DAILY PRN 05/03/18 12:15 Magnesium Oxide (Magnesium Oxide) 400 mg DAILY 05/02/18 10:00 05/03/18 08:23 400 MG Miscellaneous (Lidoderm Patch Removal) 1 ea QHS 05/03/18 21:00 05/03/18 21:00 1 EA Multivitamins (Thera M Plus) 1 tab DAILY 05/02/18 10:00 05/03/18 08:24 1 TAB Non-Formulary Medication (Garlic ) 400 mg DAILY 05/03/18 09:00 UNV Ondansetron HCl (Zofran Odt) 4 mg PRN Q6HRS PRN 05/02/18 09:30 Ondansetron HCl (Zofran) 4 mg PRN Q6HRS PRN 05/02/18 09:30 Oxybutynin Chloride (Ditropan) 5 mg DAILY 05/02/18 10:00 05/03/18 08:25 5 MG Paroxetine HCl (Paxil) 20 mg DAILY 05/02/18 10:00 05/03/18 08:25 20 MG Piperacillin Sod/ Tazobactam Sod 3.375 gm/Sodium Chloride 50 ml @ 100 mls/hr 1X ONCE 05/02/18 00:30 05/02/18 03:06 DC 05/02/18 00:30 100 MLS/HR Polyethylene Glycol (miraLAX PACKET) 17 gm PRN DAILY PRN 05/03/18 12:15 Sodium Chloride 1,000 ml @ 75 mls/hr [id number] 05/03/18 11:00 05/04/18 00:24 75 MLS/HR Vancomycin HCl (Vanco Per Pharmacy) 1 each PRN DAILY PRN 05/02/18 00:30 05/02/18 14:43 DC 05/02/18 13:45 1 EACH Vancomycin HCl (Vancomycin Trough Level) 1 each 1X ONCE 05/04/18 00:30 05/04/18 00:31 Cancel Vancomycin HCl 2 gm/Sodium Chloride 500 ml @ 250 mls/hr Q24H 05/03/18 01:00 05/03/18 01:00 DC Labs: Lab Laboratory Tests Test 05/03/18 11:39 05/03/18 16:59 05/03/18 20:32 05/04/18 03:25 Glucose (Fingerstick) 147 mg/dL (70-99) 169 mg/dL (70-99) 183 mg/dL (70-99) White Blood Count 4.7 x10^3/uL (4.0-11.0) Red Blood Count 2.74 x10^6/uL (4.30-5.70) Hemoglobin 8.4 g/dL (13.0-17.5) Hematocrit 25.1 % (39.0-53.0) Mean Corpuscular Volume 92 fL (79-100) Mean Corpuscular Hemoglobin 31 pg (25-35) Mean Corpuscular Hemoglobin Concent 33 g/dL (31-37) Red Cell Distribution Width 14.4 % (11.5-14.5) Platelet Count 120 x10^3/uL (140-400) Neutrophils (%) (Auto) 81 % (31-73) Lymphocytes (%) (Auto) 7 % (24-48) Monocytes (%) (Auto) 10 % (0-9) Eosinophils (%) (Auto) 1 % (0-3) Basophils (%) (Auto) 0 % (0-3) Neutrophils # (Auto) 3.8 x10^3uL (1.8-7.7) Lymphocytes # (Auto) 0.3 x10^3/uL (1.0-4.8) Monocytes # (Auto) 0.4 x10^3/uL (0.0-1.1) Eosinophils # (Auto) 0.1 x10^3/uL (0.0-0.7) Basophils # (Auto) 0.0 x10^3/uL (0.0-0.2) Segmented Neutrophils % 86 % (35-66) Band Neutrophils % 3 % (0-9) Lymphocytes % 5 % (24-48) Monocytes % 5 % (0-10) Basophils % 1 % (0-3) Platelet Estimate Decreased (ADEQUATE) Sodium Level 136 mmol/L (136-145) Potassium Level 3.7 mmol/L (3.5-5.1) Chloride Level 102 mmol/L (98-107) Carbon Dioxide Level 23 mmol/L (21-32) Anion Gap 11 (6-14) Blood Urea Nitrogen 28 mg/dL (8-26) Creatinine 1.7 mg/dL (0.7-1.3) Estimated GFR (Cockcroft-Gault) 39.8 Glucose Level 167 mg/dL (70-99) Calcium Level 8.3 mg/dL (8.5-10.1) Test 05/04/18 07:11 Glucose (Fingerstick) 161 mg/dL (70-99) Objective: Assessment: RLE cellulitis BLE venous stasis ELO on CKD Morbid obesity DM Plan: Plan of Care cont rocephin s/p Vanc f/u labs and cults elevate RLE PT and OT as tolerated TAE SANCHEZ MD May 04, 2018 08:17
[2018-05-04] MEDS: LIDOCAINE (700MG/PATCH) PATCH. TD SCH (08:22)
[2018-05-04] MEDS: glipiZIDE ER 2.5 MG TAB.ER.24 PO SCH (08:22)
[2018-05-04] MEDS: MULTIVITAMIN with MINERAL TABLET. PO SCH (08:23)
[2018-05-04] MEDS: DOXAZOSIN MESYLATE 1 MG TABLET. PO SCH (08:23)
[2018-05-04] MEDS: PARoxetine 20 MG TABLET PO SCH (08:23)
[2018-05-04] MEDS: LISINOPRIL 20 MG TABLET PO SCH (08:24)
[2018-05-04] MEDS: LACTOBACILLUS RHAMNOSUS GG 1 CAPSULE. PO SCH ×2 (08:24→21:17)
[2018-05-04] MEDS: MAGNESIUM OXIDE 400 MG TABLET PO SCH (08:24)
[2018-05-04] MEDS: CALCIUM CARBONATE 500 MG TABLET PO SCH (08:24)
[2018-05-04] MEDS: amLODIPine BESYLATE 10 MG TABLET PO SCH (08:24)
[2018-05-04] MEDS: OXYBUTYNIN CHLORIDE 5 MG TABLET PO SCH (08:25)
[2018-05-04] MEDS: hydroCHLOROthiazide 25 MG TABLET PO SCH (08:25)
[2018-05-04 11:31] VITALS: BP 120/51
--- NOTE | 2018-05-04 11:54 | PDOC ---
PROGRESS NOTES Chief Complaint Chief Complaint Right leg cellulitis, acute onset fast spreading-top differential includes group B [id number] blood cultures drawn at ER Diabetes type 2 on metformin-hemoglobin A1c good - recently taken off of insulin BMI 50.4, obesity Hypertension, controlled SIRS POA AK I/VMN-creatinine 1.7 Generalized weakness-SNU candidate History of Present Illness History of Present Illness Back pain better since Lidoderm patch Creatinine has come down to 1.7 from 1.9-on IV Rocephin, did get vancomycin on arrival Very weak, he demonstrated to get up from sitting position using the walker but he didn't have any muscle to do it PT has recommended SNU on day 1 of eval-he hopes he can get better in strength Right leg looks the same as of yesterday Blood culture preliminary day 2 negative MAXIMUM TEMPERATURE 99.6 last night PLAN: cont IV antibiotics per ID Continue to follow cultures-so far blood cultures negative PT OT is recommended SNU Social work for SNU screen Elevate both legs Full code ok To DC telemetry Vitals Vitals Vital Signs Date Time Temp Pulse Resp B/P (MAP) Pulse Ox O2 Delivery O2 Flow Rate FiO2 05/04/18 11:31 98.2 85 22 120/51 (74) 93 Room Air 98.2 05/04/18 08:00 2.0 Physical Exam Physical Exam GENERAL: Alert, oriented x 3 male, lying in bed comfortably, in no acute distress, cooperative. HEENT: Normocephalic, atraumatic, anicteric. Scalp, eschar present over the superior area, no drainage, no surrounding redness. Pupils equal, reactive. No conjunctival icterus. No conjunctival petechia. Oral mucosa moist. No thrush. NECK: Supple, no JVD. LUNGS: Clear bilaterally. No wheezing. HEART: S1, S2 with no gallops or murmurs. ABDOMEN: Soft, obese. Bowel sounds present, nontender, nondistended. EXTREMITIES: Bilateral chronic venous stasis; bilateral lower extremity edema, right greater than the left. Redness with a purplish hue present over the right lower extremity. Redness and swelling has receded from the lines placed previously. Right ankle swelling present, no evidence of decrease in range of motion, no warmth, no redness, no evidence of ongoing septic joint at this time. Right knee, no joint effusion. DERM: Warm, dry, no generalized rash except for above. PSYCHIATRIC: Appropriate mood and affect. NEUROLOGIC: Alert and oriented x 3. Grossly nonfocal. General: Alert, Oriented X3, Cooperative, No acute distress Heart: Regular rate, Normal S1, Normal S2 Abdomen: Normal bowel sounds, Soft, No tenderness, No hepatosplenomegaly, No masses Extremities: No clubbing, No cyanosis Skin: No rashes, No breakdown, No significant lesion, Other (right leg has erythematous red flat rash with no skin breakage or foul-smelling discharge, also some rash on the right dorsal foot, long toenails) Labs LABS Laboratory Tests Test 05/03/18 16:59 05/03/18 20:32 05/04/18 03:25 05/04/18 07:11 Glucose (Fingerstick) 169 mg/dL (70-99) 183 mg/dL (70-99) 161 mg/dL (70-99) White Blood Count 4.7 x10^3/uL (4.0-11.0) Red Blood Count 2.74 x10^6/uL (4.30-5.70) Hemoglobin 8.4 g/dL (13.0-17.5) Hematocrit 25.1 % (39.0-53.0) Mean Corpuscular Volume 92 fL (79-100) Mean Corpuscular Hemoglobin 31 pg (25-35) Mean Corpuscular Hemoglobin Concent 33 g/dL (31-37) Red Cell Distribution Width 14.4 % (11.5-14.5) Platelet Count 120 x10^3/uL (140-400) Neutrophils (%) (Auto) 81 % (31-73) Lymphocytes (%) (Auto) 7 % (24-48) Monocytes (%) (Auto) 10 % (0-9) Eosinophils (%) (Auto) 1 % (0-3) Basophils (%) (Auto) 0 % (0-3) Neutrophils # (Auto) 3.8 x10^3uL (1.8-7.7) Lymphocytes # (Auto) 0.3 x10^3/uL (1.0-4.8) Monocytes # (Auto) 0.4 x10^3/uL (0.0-1.1) Eosinophils # (Auto) 0.1 x10^3/uL (0.0-0.7) Basophils # (Auto) 0.0 x10^3/uL (0.0-0.2) Segmented Neutrophils % 86 % (35-66) Band Neutrophils % 3 % (0-9) Lymphocytes % 5 % (24-48) Monocytes % 5 % (0-10) Basophils % 1 % (0-3) Platelet Estimate Decreased (ADEQUATE) Sodium Level 136 mmol/L (136-145) Potassium Level 3.7 mmol/L (3.5-5.1) Chloride Level 102 mmol/L (98-107) Carbon Dioxide Level 23 mmol/L (21-32) Anion Gap 11 (6-14) Blood Urea Nitrogen 28 mg/dL (8-26) Creatinine 1.7 mg/dL (0.7-1.3) Estimated GFR (Cockcroft-Gault) 39.8 Glucose Level 167 mg/dL (70-99) Calcium Level 8.3 mg/dL (8.5-10.1) Test 05/04/18 11:21 Glucose (Fingerstick) 198 mg/dL (70-99) Review of Systems Review of Systems Weak, the rest of ROS 14 point negative Comment Review of Relevant I have reviewed the following items stephen (where applicable) has been applied. Labs Laboratory Tests Test 05/02/18 12:33 05/02/18 17:25 05/02/18 21:04 05/03/18 06:22 Glucose (Fingerstick) 187 mg/dL (70-99) 118 mg/dL (70-99) 168 mg/dL (70-99) Sodium Level 138 mmol/L (136-145) Potassium Level 3.5 mmol/L (3.5-5.1) Chloride Level 104 mmol/L (98-107) Carbon Dioxide Level 23 mmol/L (21-32) Anion Gap 11 (6-14) Blood Urea Nitrogen 27 mg/dL (8-26) Creatinine 1.9 mg/dL (0.7-1.3) Estimated GFR (Cockcroft-Gault) 35.0 Glucose Level 135 mg/dL (70-99) Calcium Level 8.9 mg/dL (8.5-10.1) Test 05/03/18 07:10 05/03/18 11:39 05/03/18 16:59 05/03/18 20:32 Glucose (Fingerstick) 124 mg/dL (70-99) 147 mg/dL (70-99) 169 mg/dL (70-99) 183 mg/dL (70-99) Test 05/04/18 03:25 05/04/18 07:11 05/04/18 11:21 White Blood Count 4.7 x10^3/uL (4.0-11.0) Red Blood Count 2.74 x10^6/uL (4.30-5.70) Hemoglobin 8.4 g/dL (13.0-17.5) Hematocrit 25.1 % (39.0-53.0) Mean Corpuscular Volume 92 fL (79-100) Mean Corpuscular Hemoglobin 31 pg (25-35) Mean Corpuscular Hemoglobin Concent 33 g/dL (31-37) Red Cell Distribution Width 14.4 % (11.5-14.5) Platelet Count 120 x10^3/uL (140-400) Neutrophils (%) (Auto) 81 % (31-73) Lymphocytes (%) (Auto) 7 % (24-48) Monocytes (%) (Auto) 10 % (0-9) Eosinophils (%) (Auto) 1 % (0-3) Basophils (%) (Auto) 0 % (0-3) Neutrophils # (Auto) 3.8 x10^3uL (1.8-7.7) Lymphocytes # (Auto) 0.3 x10^3/uL (1.0-4.8) Monocytes # (Auto) 0.4 x10^3/uL (0.0-1.1) Eosinophils # (Auto) 0.1 x10^3/uL (0.0-0.7) Basophils # (Auto) 0.0 x10^3/uL (0.0-0.2) Segmented Neutrophils % 86 % (35-66) Band Neutrophils % 3 % (0-9) Lymphocytes % 5 % (24-48) Monocytes % 5 % (0-10) Basophils % 1 % (0-3) Platelet Estimate Decreased (ADEQUATE) Sodium Level 136 mmol/L (136-145) Potassium Level 3.7 mmol/L (3.5-5.1) Chloride Level 102 mmol/L (98-107) Carbon Dioxide Level 23 mmol/L (21-32) Anion Gap 11 (6-14) Blood Urea Nitrogen 28 mg/dL (8-26) Creatinine 1.7 mg/dL (0.7-1.3) Estimated GFR (Cockcroft-Gault) 39.8 Glucose Level 167 mg/dL (70-99) Calcium Level 8.3 mg/dL (8.5-10.1) Glucose (Fingerstick) 161 mg/dL (70-99) 198 mg/dL (70-99) Laboratory Tests Test 05/03/18 16:59 05/03/18 20:32 05/04/18 03:25 05/04/18 07:11 Glucose (Fingerstick) 169 mg/dL (70-99) 183 mg/dL (70-99) 161 mg/dL (70-99) White Blood Count 4.7 x10^3/uL (4.0-11.0) Red Blood Count 2.74 x10^6/uL (4.30-5.70) Hemoglobin 8.4 g/dL (13.0-17.5) Hematocrit 25.1 % (39.0-53.0) Mean Corpuscular Volume 92 fL (79-100) Mean Corpuscular Hemoglobin 31 pg (25-35) Mean Corpuscular Hemoglobin Concent 33 g/dL (31-37) Red Cell Distribution Width 14.4 % (11.5-14.5) Platelet Count 120 x10^3/uL (140-400) Neutrophils (%) (Auto) 81 % (31-73) Lymphocytes (%) (Auto) 7 % (24-48) Monocytes (%) (Auto) 10 % (0-9) Eosinophils (%) (Auto) 1 % (0-3) Basophils (%) (Auto) 0 % (0-3) Neutrophils # (Auto) 3.8 x10^3uL (1.8-7.7) Lymphocytes # (Auto) 0.3 x10^3/uL (1.0-4.8) Monocytes # (Auto) 0.4 x10^3/uL (0.0-1.1) Eosinophils # (Auto) 0.1 x10^3/uL (0.0-0.7) Basophils # (Auto) 0.0 x10^3/uL (0.0-0.2) Segmented Neutrophils % 86 % (35-66) Band Neutrophils % 3 % (0-9) Lymphocytes % 5 % (24-48) Monocytes % 5 % (0-10) Basophils % 1 % (0-3) Platelet Estimate Decreased (ADEQUATE) Sodium Level 136 mmol/L (136-145) Potassium Level 3.7 mmol/L (3.5-5.1) Chloride Level 102 mmol/L (98-107) Carbon Dioxide Level 23 mmol/L (21-32) Anion Gap 11 (6-14) Blood Urea Nitrogen 28 mg/dL (8-26) Creatinine 1.7 mg/dL (0.7-1.3) Estimated GFR (Cockcroft-Gault) 39.8 Glucose Level 167 mg/dL (70-99) Calcium Level 8.3 mg/dL (8.5-10.1) Test 05/04/18 11:21 Glucose (Fingerstick) 198 mg/dL (70-99) Microbiology 05/02/18 Blood Culture - Preliminary, Resulted NO GROWTH AFTER 2 DAYS Medications Current Medications Fentanyl Citrate (Fentanyl 2ml Vial) 100 mcg STK-MED ONCE .ROUTE ; Start at 01:11; Stop 05/02/18 at 02:50; Status DC Sodium Chloride 1,000 ml @ 100 mls/hr 1X ONCE IV Last administered on at 00:30; Start 05/02/18 at 00:30; Stop 05/02/18 at 10:29; Status DC Fentanyl Citrate (Fentanyl 2ml Vial) 25 mcg 1X ONCE IV Last administered on 03/08at 00:30; Start 05/02/18 at 00:30; Stop 05/02/18 at 03:06; Status DC Vancomycin HCl 2 gm/Sodium Chloride 500 ml @ 250 mls/hr 1X ONCE IV Last administered on 05/02/18at 00:30; Start 05/02/18 at 00:30; Stop 05/02/18 at 03:06 ; Status DC Piperacillin Sod/ Tazobactam Sod 3.375 gm/Sodium Chloride 50 ml @ 100 mls/hr 1X ONCE IV Last administered on 05/02/18at 00:30; Start 05/02/18 at 00:30; Stop 05/02/18 at 03:06; Status DC Vancomycin HCl (Vanco Per Pharmacy) 1 each PRN DAILY PRN MC SEE COMMENTS Last administered on 05/02/18at 13:45; Start 05/02/18 at 00:30; Stop 05/02/18 at 14:43 ; Status DC Fentanyl Citrate (Fentanyl 2ml Vial) 50 mcg PRN Q2HR PRN IV PAIN Last administered on 05/04/18at 00:24; Start 05/02/18 at 06:15 Acetaminophen (Tylenol) 500 mg PRN Q6HRS PRN PO MILD PAIN / TEMP Last administered on 05/03/18at 03:00; Start 05/02/18 at 09:30 Ondansetron HCl (Zofran) 4 mg PRN Q6HRS PRN IV NAUSEA/VOMITING; Start 05/02/18 at 09:30 Ondansetron HCl (Zofran Odt) 4 mg PRN Q6HRS PRN PO NAUSEA/VOMITING; Start 05/02 at 09:30 Amlodipine Besylate (Norvasc) 10 mg DAILY PO Last administered on 05/04/18at 08: 24; Start 05/02/18 at 10:00 Citalopram Hydrobromide (CeleXA) 20 mg DAILY PO ; Start 05/02/18 at 10:00; Status Cancel Hydrochlorothiazide (Microzide) 25 mg DAILY PO ; Start 05/02/18 at 10:00; Stop 05/02/18 at 10:00; Status DC Oxybutynin Chloride (Ditropan) 5 mg DAILY PO Last administered on 05/04/18at 08: 25; Start 05/02/18 at 10:00 Calcium Carbonate/ Glycine (Oscal) 500 mg DAILY PO Last administered on at 08:24; Start 05/02/18 at 10:00 Doxazosin Mesylate (Cardura) 2 mg DAILY PO Last administered on 05/04/18at 08:23 ; Start 05/02/18 at 10:00 Non-Formulary Medication (Garlic ) 400 mg DAILY PO ; Start 05/03/18 at 09:00; Status UNV Glipizide (Glucotrol Er) 10 mg DAILY08 PO Last administered on 05/03/18at 08:00 ; Start 05/02/18 at 10:00; Stop 05/03/18 at 11:27; Status DC Magnesium Oxide (Magnesium Oxide) 400 mg DAILY PO Last administered on 08:24; Start 05/02/18 at 10:00 Multivitamins (Thera M Plus) 1 tab DAILY PO Last administered on 05/04/18 08: 23; Start 05/02/18 at 10:00 Paroxetine HCl (Paxil) 20 mg DAILY PO Last administered on 05/04/18 08:23; Start 05/02/18 at 10:00 Lisinopril (Prinivil) 20 mg DAILY PO Last administered on 05/04/18 08:24; Start 05/02/18 at 10:00 Hydrochlorothiazide (Hydrodiuril) 25 mg DAILY PO Last administered on 08:25; Start 05/02/18 at 10:00 Vancomycin HCl 2 gm/Sodium Chloride 500 ml @ 250 mls/hr Q24H IV ; Start at 01:00; Stop 05/03/18 at 01:00; Status DC Vancomycin HCl (Vancomycin Trough Level) 1 each 1X ONCE MC ; Start 05/04/18 at 00:30; Stop 05/04/18 at 00:31; Status Cancel Ceftriaxone Sodium (Rocephin) 2 gm Q24H IVP Last administered on 05/03/18 16: 18; Start 05/02/18 at 15:00; Stop 05/04/18 at 04:47; Status DC Sodium Chloride 1,000 ml @ 100 mls/hr 1X ONCE IV Last administered on 15:45; Start 05/02/18 at 14:45; Stop 05/03/18 at 00:44; Status DC Sodium Chloride 1,000 ml @ 75 mls/hr [id number] IV Last administered on 00:24; Start 05/03/18 at 11:00 Glipizide (Glucotrol Er) 5 mg DAILY08 PO Last administered on 05/04/18 08:22; Start 05/04/18 at 08:00 Lidocaine (Lidoderm) 1 patch DAILY TD Last administered on 05/04/18 08:22; Start 05/03/18 at 13:00 Miscellaneous (Lidoderm Patch Removal) 1 ea QHS MC Last administered on at 21:00; Start 05/03/18 at 21:00 Magnesium Hydroxide (Milk Of Magnesia) 2,400 mg PRN DAILY PRN PO CONSTIPATION 2ND CHOICE; Start 05/03/18 at 12:15 Polyethylene Glycol (miraLAX PACKET) 17 gm PRN DAILY PRN PO CONSTIPATION 1ST CHOICE; Start 05/03/18 at 12:15 Lactobacillus Rhamnosus (Culturelle) 1 cap BID PO Last administered on at 08:24; Start 05/03/18 at 21:00 Ceftriaxone Sodium (Rocephin) 2 gm Q24H IVP ; Start 05/04/18 at 05:00; Status Cancel Ceftriaxone Sodium (Rocephin) 2 gm Q24H IVP ; Start 05/04/18 at 15:00 Active Scripts Active Reported Glipizide Er (Glipizide) 5 Mg Tab.er.24 1 Tab PO DAILY Metformin Hcl 500 Mg Tablet 500 Mg PO DAILYAC Garlic 400 Mg Tablet 400 Mg PO DAILY Magnesium (Magnesium Oxide) 400 Mg Capsule 1 Cap PO DAILY Calcium Citrate 250 Mg Tablet 600 Mg PO DAILY Centrum Silver Tablet (Multivits-Min/Fa/Lycopene/Lut) 1 Each Tablet 1 Each PO DAILY Irbesartan 300 Mg Tablet 300 Mg PO DAILY Oxybutynin Chloride 5 Mg Tablet 1 Tab PO DAILY Amlodipine Besylate 10 Mg Tablet 10 Mg PO DAILY Paroxetine Hcl 20 Mg Tablet 1 Tab PO DAILY Hydrochlorothiazide Capsule (Hydrochlorothiazide) 12.5 Mg Capsule 25 Mg PO DAILY Doxazosin Mesylate 2 Mg Tablet 1 Tab PO DAILY Lisinopril 20 Mg Tablet 1 Tab PO DAILY Vitals/I & O Vital Sign - Last 24 Hours 05/03/18 05/03/18 05/03/18 05/03/18 15:26 19:30 20:00 23:14 Temp 98.6 97.3 98.1 98.6 97.3 98.1 Pulse 75 87 89 Resp 20 20 20 B/P (MAP) 133/56 (81) 131/60 (83) 164/58 (93) Pulse Ox 95 96 92 O2 Delivery Room Air Room Air Room Air Room Air 05/04/18 05/04/18 05/04/18 05/04/18 00:24 00:54 03:16 07:24 Temp 97.9 99.6 97.9 99.6 Pulse 82 84 Resp 20 22 B/P (MAP) 144/52 (82) 152/68 (96) Pulse Ox 93 93 90 94 O2 Delivery Room Air Room Air Room Air Room Air 05/04/18 05/04/18 05/04/18 05/04/18 08:00 08:23 08:24 08:24 Pulse 84 84 84 B/P (MAP) 152/68 152/68 152/68 O2 Delivery Nasal Cannula O2 Flow Rate 2.0 05/04/18 11:31 Temp 98.2 98.2 Pulse 85 Resp 22 B/P (MAP) 120/51 (74) Pulse Ox 93 O2 Delivery Room Air Intake and Output 05/03/18 05/03/18 05/04/18 15:00 23:00 07:00 Intake Total 200 ml 250 ml 550 ml Output Total 175 ml 50 ml Balance 25 ml 250 ml 500 ml DELFINA MERA MD May 04, 2018 11:54
--- NOTE | 2018-05-04 12:00 | NUR ---
SW following pt. PT/OT recommends SNU. Spoke with pt at bedside and discussed SNU options, insurance coverage and Medicare ratings. Pt chose [facility]. SW phoned and faxed referral. Pt admission and acceptance pending. Will continue to follow.
[2018-05-04] MEDS: cefTRIAXone IV Push 2 GM VIAL. IVP SCH (14:54)
[2018-05-04 15:35] VITALS: BP 127/51
--- NOTE | 2018-05-04 16:07 | NUR ---
Pt has been accepted at and facility will have a bed available upon dc. [facility] will f/u pt.
--- NOTE | 2018-05-04 18:57 | PHYS DOC ---
Adult General HPI HPI 72 y/o male presents to ER for c/o rt lower leg redness/pain/swelling and fall. Pt reports his legs have been weak which caused him to fall down 4 stairs. He reports he did hit the top of his head denying any LOC- he is denying any head, neck, or back pain. Pt's at bedside reports pt has had fever with increased weakness- denies confusion/change in MS. Pt is denying any CP, SOA, abd pain, N/V/D, or urinary sxs. Pt was evaluated in the ER on 05/02/18- computer issues delayed charting and ER note is documented on 05/04/18. Review of Systems Review of Systems Constitutional: Reports fever and increased generalized weakness. Pt's denies confusion Eyes: Denies change in visual acuity, redness, or eye pain [] HENT: Denies nasal congestion or sore throat [] Respiratory: Denies cough or shortness of breath [] Cardiovascular: Denies CP GI: Denies abdominal pain, nausea, vomiting, bloody stools or diarrhea [] : Denies dysuria or hematuria [] Musculoskeletal: Denies back/neck pain or joint pain [] Integument: Denies rash or skin lesions [] Neurologic: Denies headache, focal weakness or sensory changes [] Endocrine: Denies polyuria or polydipsia [] All other systems were reviewed and found to be within normal limits, except as documented in this note. Current Medications Current Medications Current Medications Medications (Trade) Dose Ordered Sig/Hill Start Time Stop Time Status Last Admin Dose Admin Fentanyl Citrate (Fentanyl 2ml Vial) 25 mcg 1X ONCE 05/02/18 00:30 05/02/18 03:06 DC 05/02/18 00:30 25 MCG Piperacillin Sod/ Tazobactam Sod 3.375 gm/Sodium Chloride 50 ml @ 100 mls/hr 1X ONCE 05/02/18 00:30 05/02/18 03:06 DC 05/02/18 00:30 100 MLS/HR Sodium Chloride 1,000 ml @ 100 mls/hr 1X ONCE 05/02/18 00:30 05/02/18 10:29 DC 05/02/18 00:30 100 MLS/HR Vancomycin HCl (Vanco Per Pharmacy) 1 each PRN DAILY PRN 05/02/18 00:30 05/02/18 14:43 DC 05/02/18 13:45 1 EACH Vancomycin HCl 2 gm/Sodium Chloride 500 ml @ 250 mls/hr 1X ONCE 05/02/18 00:30 05/02/18 03:06 DC 05/02/18 00:30 250 MLS/HR Allergies Allergies Physical Exam Physical Exam Constitutional: Well developed, well nourished, no acute distress, non-toxic appearance. Fatigued appearance HENT: Normocephalic, atraumatic, bilateral ears normal, oropharynx moist, no oral exudates, nose normal. [] Eyes: PERRLA, no nystagmus, conjunctiva normal, no discharge. [] Neck: Normal range of motion, no tenderness on mid line cspine- no palp. deformity, supple, no stridor. [] Cardiovascular: Heart rate regular rhythm, no murmur [] Lungs & Thorax: Bilateral breath sounds clear to auscultation- resp. equal/nonlabored. No chest wall tenderness Abdomen: Bowel sounds normal, soft, no tenderness, no masses, no pulsatile masses. [] Skin: Warm, dry, no erythema, no rash. [] Back: No tenderness on palp. midline spine- no visible injury, no CVA tenderness. [] Extremities: Pelvis stable/nontender. No cyanosis, no clubbing, ROM intact- slow purposeful movements. 2+ bilat. dorsalis pedis/posterior tibial. Rt lower leg erythema/warmth- mid anterior solis to ankle/foot- 1+ bilat. pedal edema nonpitti ng Neurologic: Alert and oriented X 3, normal motor function, normal sensory fu nction, no focal deficits noted. [] Psychologic: Affect normal, judgement normal, mood normal. [] Current Patient Data Lab Values Laboratory Tests Test 05/01/18 23:05 05/02/18 00:40 White Blood Count 8.2 x10^3/uL (4.0-11.0) Red Blood Count 2.97 x10^6/uL (4.30-5.70) L Hemoglobin 9.1 g/dL (13.0-17.5) L Hematocrit 27.5 % (39.0-53.0) L Mean Corpuscular Volume 93 fL (79-100) Mean Corpuscular Hemoglobin 31 pg (25-35) Mean Corpuscular Hemoglobin Concent 33 g/dL (31-37) Red Cell Distribution Width 14.5 % (11.5-14.5) Platelet Count 132 x10^3/uL (140-400) L Neutrophils (%) (Auto) 93 % (31-73) H Lymphocytes (%) (Auto) 2 % (24-48) L Monocytes (%) (Auto) 5 % (0-9) Eosinophils (%) (Auto) 0 % (0-3) Basophils (%) (Auto) 0 % (0-3) Neutrophils # (Auto) 7.7 x10^3uL (1.8-7.7) Lymphocytes # (Auto) 0.1 x10^3/uL (1.0-4.8) L Monocytes # (Auto) 0.4 x10^3/uL (0.0-1.1) Eosinophils # (Auto) 0.0 x10^3/uL (0.0-0.7) Basophils # (Auto) 0.0 x10^3/uL (0.0-0.2) Segmented Neutrophils % 59 % (35-66) Band Neutrophils % 32 % (0-9) H Lymphocytes % 2 % (24-48) L Monocytes % 7 % (0-10) Platelet Estimate Adequate (ADEQUATE) Tear Drop Cells Occ Ovalocytes Few Iron Cells Few Acanthocytes (Spur Cells) Occ Schistocytes Occ Prothrombin Time 14.3 SEC (11.7-14.0) H Prothrombin Time INR 1.1 (0.8-1.1) PTT 29 SEC (24-38) Urine Collection Type Unknown Urine Color Yellow Urine Clarity Clear Urine pH 5.0 Urine Specific [place] 1.020 Urine Protein Negative mg/dL (NEG-TRACE) Urine Glucose (UA) >=1000 mg/dL (NEG) Urine Ketones (Stick) Negative mg/dL (NEG) Urine Blood Trace (NEG) Urine Nitrite Negative (NEG) Urine Bilirubin Negative (NEG) Urine Urobilinogen Dipstick 0.2 mg/dL (0.2 mg/dL) Urine Leukocyte Esterase Negative (NEG) Urine RBC Occ /HPF (0-2) Urine WBC Occ /HPF (0-4) Urine Squamous Epithelial Cells Few /LPF Urine Bacteria 0 /HPF (0-FEW) Urine Hyaline Casts Few /HPF Urine Mucus Mod /LPF Sodium Level 139 mmol/L (136-145) Potassium Level 4.1 mmol/L (3.5-5.1) Chloride Level 103 mmol/L (98-107) Carbon Dioxide Level 21 mmol/L (21-32) Anion Gap 15 (6-14) H Blood Urea Nitrogen 35 mg/dL (8-26) H Creatinine 1.7 mg/dL (0.7-1.3) H Estimated GFR (Cockcroft-Gault) 39.8 BUN/Creatinine Ratio 21 (6-20) H Glucose Level 258 mg/dL (70-99) H Calcium Level 9.6 mg/dL (8.5-10.1) Total Bilirubin 0.6 mg/dL (0.2-1.0) Aspartate Amino Transferase (AST) 17 U/L (15-37) Alanine Aminotransferase (ALT) 18 U/L (16-63) Alkaline Phosphatase 56 U/L (46-116) Creatine Kinase 138 U/L (39-308) Troponin I Quantitative 0.054 ng/mL (0.000-0.055) Total Protein 7.0 g/dL (6.4-8.2) Albumin 3.4 g/dL (3.4-5.0) Albumin/Globulin Ratio 0.9 (1.0-1.7) L Lactic Acid Level 1.4 mmol/L (0.4-2.0) Laboratory Tests 05/01/18 23:05 Laboratory Tests 05/01/18 23:05 Microbiology 05/02/18 Blood Culture - Final, Complete NO GROWTH AFTER 5 DAYS EKG EKG EKG obtained 05/02/18 at 0121 Interpreted by ER physician Sinus rhythm 1st degree AVB Rate 85 No STEMI Radiology/Procedures Radiology/Procedures PROCEDURE: VENOUS LOWER EXTREMITY RIGHT Examination: Right Lower Extremity Venous Doppler Ultrasound History: Right lower extremity swelling, discoloration Comparison: None Procedure: Fitzgerald scale, color flow 2D and spectal waveform analysis images are obtained with and without compression in the area of the common femoral vein, superficial femoral vein - femoral vein junction, main femoral vein (superficial femoral vein) and popliteal vein. Veins of the proximal calf are also imaged. Findings: There is normal duplex flow, color flow and compressibility of all visualized vein segments. No evidence of deep venous thrombus is present. Limited visualization of the calf veins. 3.2 cm lymph node identified in the proximal thigh likely normal lymph node. Impression: No evidence of DVT. Electronically signed by: Deven Mast MD (05/03/2018 2:45 PM) [facility] DICTATED and SIGNED BY: DEVEN MAST MD DATE: 05/03/18 1443 PROCEDURE: ANKLE RIGHT 2V EXAM: Right ankle, 2 views. HISTORY: Fall. Infection. COMPARISON: None. FINDINGS: 2 views of the right ankle are obtained. There is no acute fracture, dislocation or subluxation. No osteochondral lesion is seen. There is a small plantar spur. There is dorsal forefoot and diffuse ankle soft tissue swelling, a component of which may due to a dependent edema. There are vascular calcifications. IMPRESSION: 1. Dorsal forefoot and diffuse ankle soft tissue swelling. 2. Small plantar spur. 3. No acute osseous finding. Electronically signed by: Isa Stringer MD (05/02/2018 4:35 PM) [facility] DICTATED and SIGNED BY: ISA STRINGER MD DATE: 05/02/18 1634 PROCEDURE: CT HEAD AND CERVICAL SPINE WO EXAM: Head and cervical spine CT without contrast. HISTORY: Pain. Fall. TECHNIQUE: Computed tomographic images the head and cervical spine were obtained without contrast. *One or more of the following individualized dose reduction techniques were utilized for this examination: 1. Automated exposure control. 2. Adjustment of the mA and/or kV according to patient size. 3. Use of iterative reconstruction technique. COMPARISON: None. FINDINGS: Head: There is no hemorrhage. There is no mass effect or midline shift. There is no hydrocephalus. There are subtle areas of hypodensity within the cerebral white matter, likely due to chronic small vessel disease. The orbits are unremarkable. There is a left maxillary sinus mucous retention cysts and mild right maxillary sinus mucosal thickening. The mastoid air cells are clear. Cervical spine: There is cervical kyphosis centered at C4-C5. There is mild anterolisthesis of C3 on C4. There is degenerative endplate remodeling with disc space narrowing, osteophytosis and Schmorl's node formation primarily at C4-C7. There is multilevel facet arthropathy. No displaced fracture is seen. No suspicious lytic or sclerotic osseous lesion is seen. There are few small incidental benign bone islands. There is a diffusely heterogeneous thyroid gland thickening multiple nodules and cysts and calcifications. At C2-C3, there is a disc bulge and endplate osteophytosis. There is moderate to severe right facet arthropathy. There is right uncovertebral arthropathy. There is moderate right foraminal stenosis. At C3-C4, there is a disc bulge and endplate osteophytosis. There is moderate bilateral facet arthropathy. There is bilateral uncovertebral arthropathy. There is moderate bilateral foraminal stenosis. There is mild central canal stenosis. At C4-C5, there is a disc bulge and endplate osteophytosis. There is mild right facet arthropathy. There is bilateral uncovertebral arthropathy. There is mild left foraminal stenosis. At C5-C6, there is a right paracentral disc protrusion superimposed on a disc bulge and endplate osteophytosis. There is bilateral uncovertebral arthropathy. There is moderate right and mild left foraminal stenosis. There is mild to moderate central canal stenosis. At C6-C7, there is a and left paracentral disc osteophyte complex superimposed on a disc bulge and endplate osteophytosis. There is bilateral uncovertebral therapy. There is moderate left foraminal stenosis. IMPRESSION: 1. No acute intracranial finding or evidence of acute cervical spine trauma. 2. Subtle areas of hypodensity within the cerebral white matter, likely due to chronic small vessel disease. 3. Multilevel degenerative change within the cervical spine, resulting in significant stenosis of the aforementioned levels. 4. Heterogeneous thyroid containing multiple nodules and cysts. This can be assessed with a thyroid sonogram. Electronically signed by: Isa Stringer MD (05/03/2018 2:50 PM) [facility] DICTATED and SIGNED BY: ISA STRINGER MD DATE: 05/03/18 1446 Course & Med Decision Making Course & Med Decision Making Pertinent Labs and Imaging studies reviewed. (See chart for details) Pt was admitted to hospitalist services after labs/imaging while in the ER. Venous doppler of rt LE was neg. for DVT. Head/CSpine CT neg. for acute findings of hemorrhage/fxs. Blood cx were obtained and pt was started on IV Vancomycin and Zosyn while in the ER for rt lower leg cellulitis. Pt had NL WBCs at 8.2 differential with 32 bands. H&H 9.1/27.5- pt denying any dark tarry or bloody stools. Lactic acid NL at 1.4. EKG with no acute ST elevation/STEMI and troponin 0.054- pt denying any CP/palpitations. UA neg. for UTI. No prior labs in pt's records to compare results with. Pt remained A&Ox3 while in the ER was provided with IV flds. He remained PMS intact in bilat. lower extremities. Dragon Disclaimer Dragon Disclaimer This electronic medical record was generated, in whole or in part, using a voice recognition dictation system. Departure Departure Impression: Primary Impression: Cellulitis of right leg Additional Impressions: Weakness Fall Disposition: ADMITTED INPATIENT Admitting Physician: Michelle Victor Condition: STABLE Referrals: RITESH BRYANT MD (PCP) Scripts Cephalexin (KEFLEX) 500 Mg Capsule 1 CAP PO TID for cellulitis, #30 CAP Prov: MICHELLE VICTOR MD 05/05/18 Hydrocodone/Apap 5-325 (NORCO 5-325 TABLET) 1 Each Tablet 1 TAB PO TID for back apin, #30 TAB Prov: MICHELLE VICTOR MD 05/05/18 Lidocaine (Lidocaine) 1 Each Adh..patch 1 PATCH TD DAILY for back pain MDD 1, #14 PATCH Prov: MICHELLE VICTOR MD 05/05/18 Problem Qualifiers OLEG GUTHRIE APRN May 04, 2018 18:57
[2018-05-04 19:56] VITALS: BP 130/52
[2018-05-04] MEDS: PATCH REMOVAL. MC SCH (21:00)
[2018-05-04 23:51] VITALS: BP 161/68
[2018-05-05] MEDS: IV NORMAL SALINE 1000ML BAG 1,000 ML IV SCH (03:00)
[2018-05-05 03:48] VITALS: BP 150/57
[2018-05-05 07:05] VITALS: BP 149/49
--- NOTE | 2018-05-05 07:51 | PDOC ---
Infectious Disease Note Subjective: Subjective pt says feels better less redness and swelling of the RLE No fever or chills no n/v/d ROS: ROS Negative except for above. Vital Signs: Vital Signs Vital Signs Date Time Temp Pulse Resp B/P (MAP) Pulse Ox O2 Delivery O2 Flow Rate FiO2 05/05/18 07:05 98.1 80 19 149/49 (82) 97 Room Air 98.1 05/04/18 08:00 2.0 Physical Exam: PHYSICAL EXAM GENERAL: Alert, oriented x 3 male, lying in bed comfortably, in no acute distress, cooperative. HEENT: Normocephalic, atraumatic, anicteric. Scalp, eschar present over the superior area, no drainage, no surrounding redness. Pupils equal, reactive. No conjunctival icterus. No conjunctival petechia. Oral mucosa moist. No thrush. NECK: Supple, no JVD. LUNGS: Clear bilaterally. No wheezing. HEART: S1, S2 with no gallops or murmurs. ABDOMEN: Soft, obese. Bowel sounds present, nontender, nondistended. EXTREMITIES: Bilateral chronic venous stasis; bilateral lower extremity edema, right greater than the left. Redness with a purplish hue present over the right lower extremity. Redness and swelling has receded from the lines placed previously. Right ankle swelling present, no evidence of decrease in range of motion, no warmth, no redness, no evidence of ongoing septic joint at this time. Right knee, no joint effusion. DERM: Warm, dry, no generalized rash except for above. PSYCHIATRIC: Appropriate mood and affect. NEUROLOGIC: Alert and oriented x 3. Grossly nonfocal. Medications: Inpatient Meds: Current Medications Medications (Trade) Dose Ordered Sig/Hill Start Time Stop Time Status Last Admin Dose Admin Acetaminophen (Tylenol) 500 mg PRN Q6HRS PRN 05/02/18 09:30 05/03/18 03:00 500 MG Amlodipine Besylate (Norvasc) 10 mg DAILY 05/02/18 10:00 05/04/18 08:24 10 MG Calcium Carbonate/ Glycine (Oscal) 500 mg DAILY 05/02/18 10:00 05/04/18 08:24 500 MG Ceftriaxone Sodium (Rocephin) 2 gm Q24H 05/04/18 15:00 05/04/18 14:54 2 GM Citalopram Hydrobromide (CeleXA) 20 mg DAILY 05/02/18 10:00 Cancel Doxazosin Mesylate (Cardura) 2 mg DAILY 05/02/18 10:00 05/04/18 08:23 2 MG Fentanyl Citrate (Fentanyl 2ml Vial) 50 mcg PRN Q2HR PRN 05/02/18 06:15 05/04/18 00:24 50 MCG Glipizide (Glucotrol Er) 5 mg DAILY08 05/04/18 08:00 05/04/18 08:22 5 MG Hydrochlorothiazide (Hydrodiuril) 25 mg DAILY 05/02/18 10:00 05/04/18 08:25 25 MG Hydrochlorothiazide (Microzide) 25 mg DAILY 05/02/18 10:00 05/02/18 10:00 DC Lactobacillus Rhamnosus (Culturelle) 1 cap BID 05/03/18 21:00 05/04/18 21:17 1 CAP Lidocaine (Lidoderm) 1 patch DAILY 05/03/18 13:00 05/04/18 08:22 1 PATCH Lisinopril (Prinivil) 20 mg DAILY 05/02/18 10:00 05/04/18 08:24 20 MG Magnesium Hydroxide (Milk Of Magnesia) 2,400 mg PRN DAILY PRN 05/03/18 12:15 Magnesium Oxide (Magnesium Oxide) 400 mg DAILY 05/02/18 10:00 05/04/18 08:24 400 MG Miscellaneous (Lidoderm Patch Removal) 1 ea QHS 05/03/18 21:00 05/04/18 21:00 1 EA Multivitamins (Thera M Plus) 1 tab DAILY 05/02/18 10:00 05/04/18 08:23 1 TAB Non-Formulary Medication (Garlic ) 400 mg DAILY 05/03/18 09:00 UNV Ondansetron HCl (Zofran Odt) 4 mg PRN Q6HRS PRN 05/02/18 09:30 Ondansetron HCl (Zofran) 4 mg PRN Q6HRS PRN 05/02/18 09:30 Oxybutynin Chloride (Ditropan) 5 mg DAILY 05/02/18 10:00 05/04/18 08:25 5 MG Paroxetine HCl (Paxil) 20 mg DAILY 05/02/18 10:00 05/04/18 08:23 20 MG Piperacillin Sod/ Tazobactam Sod 3.375 gm/Sodium Chloride 50 ml @ 100 mls/hr 1X ONCE 05/02/18 00:30 05/02/18 03:06 DC 05/02/18 00:30 100 MLS/HR Polyethylene Glycol (miraLAX PACKET) 17 gm PRN DAILY PRN 05/03/18 12:15 Sodium Chloride 1,000 ml @ 75 mls/hr [id number] 05/03/18 11:00 05/05/18 03:00 75 MLS/HR Vancomycin HCl (Vanco Per Pharmacy) 1 each PRN DAILY PRN 05/02/18 00:30 05/02/18 14:43 DC 05/02/18 13:45 1 EACH Vancomycin HCl (Vancomycin Trough Level) 1 each 1X ONCE 05/04/18 00:30 05/04/18 00:31 Cancel Vancomycin HCl 2 gm/Sodium Chloride 500 ml @ 250 mls/hr Q24H 05/03/18 01:00 05/03/18 01:00 DC Labs: Lab Laboratory Tests Test 05/04/18 11:21 05/04/18 16:51 05/04/18 19:39 05/05/18 07:20 Glucose (Fingerstick) 198 mg/dL (70-99) 197 mg/dL (70-99) 243 mg/dL (70-99) 201 mg/dL (70-99) Objective: Assessment: RLE cellulitis BLE venous stasis ELO on CKD Morbid obesity DM Plan: Plan of Care cont rocephin for todays dose transition to Keflex for 10 days starting tomorrow probiotics elevate RLE PT and OT as tolerated TAE SANCHEZ MD May 05, 2018 07:51
[2018-05-05] MEDS: DOXAZOSIN MESYLATE 1 MG TABLET. PO SCH (08:45)
[2018-05-05] MEDS: hydroCHLOROthiazide 25 MG TABLET PO SCH (08:46)
[2018-05-05] MEDS: CALCIUM CARBONATE 500 MG TABLET PO SCH (08:46)
[2018-05-05] MEDS: glipiZIDE ER 2.5 MG TAB.ER.24 PO SCH (08:46)
[2018-05-05] MEDS: amLODIPine BESYLATE 10 MG TABLET PO SCH (08:46)
[2018-05-05] MEDS: OXYBUTYNIN CHLORIDE 5 MG TABLET PO SCH (08:46)
[2018-05-05] MEDS: MAGNESIUM OXIDE 400 MG TABLET PO SCH (08:46)
[2018-05-05] MEDS: LISINOPRIL 20 MG TABLET PO SCH (08:47)
[2018-05-05] MEDS: MULTIVITAMIN with MINERAL TABLET. PO SCH (08:47)
[2018-05-05] MEDS: PARoxetine 20 MG TABLET PO SCH (08:47)
[2018-05-05] MEDS: LACTOBACILLUS RHAMNOSUS GG 1 CAPSULE. PO SCH (08:47)
[2018-05-05] MEDS: LIDOCAINE (700MG/PATCH) PATCH. TD SCH ×2 (08:48→15:11)
--- NOTE | 2018-05-05 09:28 | NUR ---
PRINCESS following. 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 PRINCESS phoned and faxed referral to [facility] and notified them pt is ready to dc today. Pt acceptance and admission pending. Will continue to follow.
[2018-05-05 10:25] VITALS: BP 141/53
[2018-05-05] MEDS ORDERED: LOSARTAN POTASSIUM 25 MG TABLET. PO SCH (12:00)
[2018-05-05] MEDS ORDERED: LIDO700A39 TD (12:28)
[2018-05-05] MEDS ORDERED: CEPH-264 PO (12:28)
[2018-05-05] MEDS ORDERED: HYDR-3164 PO (12:28)
--- NOTE | 2018-05-05 12:29 | DISCH ---
DISCHARGE DISCHARGE INFORMATION: DISCHARGE DATE: May 05, 2018 CONDITION ON DISCHARGE: Stable CODE STATUS: Code Status: Full GROUP HOME: SNF STAY <30 DAYS: Yes HOSPICE: HOSPICE: No HOSPICE EVAL & TREAT: No LTAC: ADMIT TO LTAC: No POST DISCHARGE ORDERS: ACTIVITY ORDERS: Activity as tolerated WEIGHT BEARING STATUS: As tolerated DIET AFTER DISCHARGE: Cardiac CHECKS AFTER DISCHARGE: CHECKS AFTER DISCHARGE: Check blood press - daily, Check blood sugar, ac/hs TREATMENT/EQUIPMENT ORDERS: ADAPTIVE EQUIPMENT NEEDED: Commode, Four wheeled walker Physical Therapy For: Evalulation/Treatment Occupational Therapy For: Evaluation/Treatment DISCHARGE MEDICATIONS: Home Meds Active Scripts Cephalexin (KEFLEX) 500 Mg Capsule, 1 CAP PO TID for cellulitis, #30 CAP Prov:DELFINA MERA MD 05/05/18 Hydrocodone/Apap 5-325 (NORCO 5-325 TABLET) 1 Each Tablet, 1 TAB PO TID for back apin, #30 TAB Prov:DELFINA MERA MD 05/05/18 Lidocaine (Lidocaine) 1 Each Adh..patch, 1 PATCH TD DAILY for back pain MDD 1, # 14 PATCH Prov:DELFINA MERA MD 05/05/18 Reported Medications Glipizide (GLIPIZIDE ER) 5 Mg Tab.er.24, 1 TAB PO DAILY for diabetic control, # 30 TAB 5 Refills 05/03/18 Metformin Hcl (METFORMIN HCL) 500 Mg Tablet, 500 MG PO DAILYAC for ANTI-DIABETIC , TAB 0 Refills 05/02/18 Garlic (GARLIC) 400 Mg Tablet, 400 MG PO DAILY, TAB 12/16/17 Magnesium Oxide (MAGNESIUM) 400 Mg Capsule, 1 CAP PO DAILY, #30 CAP 3 Refills 12/16/17 Calcium Citrate (CALCIUM CITRATE) 250 Mg Tablet, 600 MG PO DAILY, TAB 12/16/17 Multivits-Min/Fa/Lycopene/Lut (CENTRUM SILVER TABLET) 1 Each Tablet, 1 EACH PO DAILY, TAB 12/16/17 Irbesartan (IRBESARTAN) 300 Mg Tablet, 300 MG PO DAILY, TAB 12/16/17 Oxybutynin Chloride (OXYBUTYNIN CHLORIDE) 5 Mg Tablet, 1 TAB PO DAILY, #60 TAB 11 Refills 12/16/17 Amlodipine Besylate (AMLODIPINE BESYLATE) 10 Mg Tablet, 10 MG PO DAILY, TAB 12/16/17 Paroxetine Hcl (PAROXETINE HCL) 20 Mg Tablet, 1 TAB PO DAILY, #30 TAB 5 Refills 12/16/17 Hydrochlorothiazide (HYDROCHLOROTHIAZIDE CAPSULE ) 12.5 Mg Capsule, 25 MG PO DAILY for DIURETIC, CAP 0 Refills 12/16/17 Doxazosin Mesylate (DOXAZOSIN MESYLATE) 2 Mg Tablet, 1 TAB PO DAILY, #30 TAB 5 Refills 12/16/17 Lisinopril (LISINOPRIL) 20 Mg Tablet, 1 TAB PO DAILY, #30 TAB 5 Refills 12/16/17 Discontinued Reported Medications Glipizide (GLIPIZIDE ER) 10 Mg Tab.er.24, 1 TAB PO DAILY, #90 TAB 1 Refill 12/16/17 Metformin Hcl (METFORMIN HCL) 1,000 Mg Tablet, 1000 MG PO BIDWMEALS, TAB 12/16/17 DELFINA MERA MD May 05, 2018 12:29
--- NOTE | 2018-05-05 12:32 | PDOC3 ---
Discharge Summary Visit Information Date of Admission: May 02, 2018 Date of Discharge: May 05, 2018 Admitting Diagnosis Comment: Right leg cellulitis, acute onset fast spreading-top differential includes group B airro-jyzxcm-xp blood cultures drawn at ER Diabetes type 2 on metformin-hemoglobin A1c good - recently taken off of insulin BMI 50.4, obesity Hypertension, controlled SIRS POA AK I/VMN-creatinine 1.7 Generalized weakness-SNU candidate Brief Hospital Course Allergies Allergies Coded Allergies Type Severity Reaction Last Updated Verified lisinopril Allergy Intermediate cough/wheeze 05/05/18 No Vital Signs Vital Signs Date Time Temp Pulse Resp B/P (MAP) Pulse Ox O2 Delivery O2 Flow Rate FiO2 05/05/18 10:25 97.9 82 22 141/53 (82) 97 Room Air 97.9 05/05/18 08:00 2.0 Lab Results Laboratory Tests Test 05/03/18 16:59 05/03/18 20:32 05/04/18 03:25 05/04/18 07:11 Glucose (Fingerstick) 169 mg/dL (70-99) 183 mg/dL (70-99) 161 mg/dL (70-99) White Blood Count 4.7 x10^3/uL (4.0-11.0) Red Blood Count 2.74 x10^6/uL (4.30-5.70) Hemoglobin 8.4 g/dL (13.0-17.5) Hematocrit 25.1 % (39.0-53.0) Mean Corpuscular Volume 92 fL (79-100) Mean Corpuscular Hemoglobin 31 pg (25-35) Mean Corpuscular Hemoglobin Concent 33 g/dL (31-37) Red Cell Distribution Width 14.4 % (11.5-14.5) Platelet Count 120 x10^3/uL (140-400) Neutrophils (%) (Auto) 81 % (31-73) Lymphocytes (%) (Auto) 7 % (24-48) Monocytes (%) (Auto) 10 % (0-9) Eosinophils (%) (Auto) 1 % (0-3) Basophils (%) (Auto) 0 % (0-3) Neutrophils # (Auto) 3.8 x10^3uL (1.8-7.7) Lymphocytes # (Auto) 0.3 x10^3/uL (1.0-4.8) Monocytes # (Auto) 0.4 x10^3/uL (0.0-1.1) Eosinophils # (Auto) 0.1 x10^3/uL (0.0-0.7) Basophils # (Auto) 0.0 x10^3/uL (0.0-0.2) Segmented Neutrophils % 86 % (35-66) Band Neutrophils % 3 % (0-9) Lymphocytes % 5 % (24-48) Monocytes % 5 % (0-10) Basophils % 1 % (0-3) Platelet Estimate Decreased (ADEQUATE) Sodium Level 136 mmol/L (136-145) Potassium Level 3.7 mmol/L (3.5-5.1) Chloride Level 102 mmol/L (98-107) Carbon Dioxide Level 23 mmol/L (21-32) Anion Gap 11 (6-14) Blood Urea Nitrogen 28 mg/dL (8-26) Creatinine 1.7 mg/dL (0.7-1.3) Estimated GFR (Cockcroft-Gault) 39.8 Glucose Level 167 mg/dL (70-99) Calcium Level 8.3 mg/dL (8.5-10.1) Test 05/04/18 11:21 05/04/18 16:51 05/04/18 19:39 05/05/18 07:20 Glucose (Fingerstick) 198 mg/dL (70-99) 197 mg/dL (70-99) 243 mg/dL (70-99) 201 mg/dL (70-99) Test 05/05/18 12:14 Glucose (Fingerstick) 235 mg/dL (70-99) Laboratory Tests Test 05/04/18 16:51 05/04/18 19:39 05/05/18 07:20 05/05/18 12:14 Glucose (Fingerstick) 197 mg/dL (70-99) 243 mg/dL (70-99) 201 mg/dL (70-99) 235 mg/dL (70-99) Brief Hospital Course Mr. Carbone is a 72 old obese male who is a diabetic but only on metformin with good hemoglobin A1c lives at home, comes in because of significant right lower extremity cellulitis he has chronic lymphedema. It was fast growing upward could be group B strep but so far blood cultures have been negative. Comanage with ID. Did receive vancomycin - creatinine jumped. He has some CK D from long-standing diabetes. Creatinine better with Rocephin, cellulitis also better with Rocephin. Okay to transition to by mouth Keflex for 10 days. Follow up ID in 4 weeks or upon snu discharge. PT recommended SNU and he is agreeable Patient seen and examined. Course remarkable for some back pain, better on Lidoderm patch, heating pad and some Narco. Rx on chart Discussed with RN, patient seen and examined DC time 31 minutes with 50% DC education counseling coordination etc. Discharge Information Condition at Discharge: Improved, Stable Follow Up: Weeks (ID 4 weeks- or after snu dc) Disposition/Orders: Other (snu) Scheduled Amlodipine Besylate (Amlodipine Besylate) 10 Mg Tablet, 10 MG PO DAILY, ( Reported) Entered as Reported by: SIMON DAVIES on 12/16/17 0842 Last Action: Continued on 05/02/18928 by DELFINA MERA Calcium Citrate (Calcium Citrate) 250 Mg Tablet, 600 MG PO DAILY, (Reported) Entered as Reported by: SIMON DAVIES on 12/16/17844 Last Action: Converted on 05/02/18928 by DELFINA MERA Cephalexin (Keflex) 500 Mg Capsule, 1 CAP PO TID for cellulitis, #30 Prescribed by: DELFINA MERA on 05/05/18 1228 Doxazosin Mesylate (Doxazosin Mesylate) 2 Mg Tablet, 1 TAB PO DAILY, #30 Ref 5 ( Reported) Entered as Reported by: SIMON DAVIES on 12/16/17 0841 Last Action: Converted on 05/02/18928 by DELFINA MERA Garlic (Garlic) 400 Mg Tablet, 400 MG PO DAILY, (Reported) Entered as Reported by: SIMON DAVIES on 12/16/17 0845 Last Action: Converted on 05/02/18928 by DELFINA MERA Glipizide (Glipizide Er) 5 Mg Tab.er.24, 1 TAB PO DAILY for diabetic control, # 30 Ref 5 (Reported) Entered as Reported by: DEYSI ELDRIDGE on 05/03/18 0832 Last Taken: UNKNOWN on Unknown Date & Time Last Action: Converted on 05/03 by DEYSI ELDRIDGE Hydrochlorothiazide (Hydrochlorothiazide Capsule ) 12.5 Mg Capsule, 25 MG PO DAILY for DIURETIC, Ref 0 (Reported) Entered as Reported by: SIMON DAVIES on 12/16/17 0841 Last Action: Continued on 05/02/18928 by DELFINA MERA Hydrocodone/Apap 5-325 (Pullman 5-325 Tablet) 1 Each Tablet, 1 TAB PO TID for back apin, #30 Prescribed by: DELFINA MERA on 05/05/18 1228 Irbesartan (Irbesartan) 300 Mg Tablet, 300 MG PO DAILY, (Reported) Entered as Reported by: SIMON DAVIES on 12/16/17 0844 Last Action: HELD on 05/03/181125 by DEYSI ELDRIDGE Lidocaine (Lidocaine) 1 Each Adh..patch, 1 PATCH TD DAILY for back pain MDD 1, # 14 Prescribed by: DELFINA MERA on 05/05/18 1228 Lisinopril (Lisinopril) 20 Mg Tablet, 1 TAB PO DAILY, #30 Ref 5 (Reported) Entered as Reported by: SIMON DAVIES on 12/16/17 0840 Last Action: HELD on 05/03/181125 by DEYSI ELDRIDGE Magnesium Oxide (Magnesium) 400 Mg Capsule, 1 CAP PO DAILY, #30 Ref 3 (Reported) Entered as Reported by: SIMON DAVIES on 12/16/17 0845 Last Action: Converted on 05/02/18928 by DELFINA MERA Metformin Hcl (Metformin Hcl) 500 Mg Tablet, 500 MG PO DAILYAC for ANTI-DIABETIC , Ref 0 (Reported) Entered as Reported by: ANDIE ESQUEDA on 05/02/18 0501 Last Action: HELD on 05/03/181125 by DEYSI ELDRIDGE Multivits-Min/Fa/Lycopene/Lut (Centrum Silver Tablet) 1 Each Tablet, 1 EACH PO DAILY, (Reported) Entered as Reported by: SIMON DAVIES on 12/16/17 0844 Last Action: Converted on 05/02/18928 by DELFINA MERA Oxybutynin Chloride (Oxybutynin Chloride) 5 Mg Tablet, 1 TAB PO DAILY, #60 Ref 11 (Reported) Entered as Reported by: SIMON DAVIES on 9/28/18 0843 Last Action: Continued on 05/02/18928 by DELFINA MERA Paroxetine Hcl (Paroxetine Hcl) 20 Mg Tablet, 1 TAB PO DAILY, #30 Ref 5 ( Reported) Entered as Reported by: SIMON DAVIES on 12/16/17841 Last Action: Converted on 05/02/18928 by DELFINA MERA Discontinued Medications Glipizide (Glipizide Er) 10 Mg Tab.er.24, 1 TAB PO DAILY, #90 Ref 1 (Reported) Entered as Reported by: SIMON DAVIES on 12/16/17842 Last Action: Discontinued on 05/03/18831 by DEYSI ELDRIDGE Metformin Hcl (Metformin Hcl) 1,000 Mg Tablet, 1,000 MG PO BIDWMEALS, (Reported) Entered as Reported by: SIMON DAVIES on 12/16/17841 Last Action: Discontinued on 05/02/18 050 by DELFINA YOUNG MD May 05, 2018 12:32
[2018-05-05 12:53] VITALS: BP 141/53
[2018-05-05] MEDS: cefTRIAXone IV Push 2 GM VIAL. IVP SCH (13:13)
--- NOTE | 2018-05-05 13:16 | NUR ---
PRINCESS following. Pt has been accepted at [facility]. PRINCESS phoned and faxed orders. Daisha at [facility] reported she has arranged transportation via [facility] between [phone] but might be later due to weather. Packet on chart. RN notified.
--- NOTE | 2018-05-05 15:26 | NUR ---
Discharge Note: AMRITA BONILLA [address] Discharge instructions and discharge home medications reviewed with Other facility and a copy given. All questions have been answered and understanding verbalized. The following instructions and handouts were given: transfer of care Discontinued lines and drains: 22 right FA, tip intact. patient tolerated well. Patient discharged to the [facility] via transport.
== END 2018-05-05 15:30 | DRG 871 ==
LOC: ER 22:50 → 6 SOUTH 05-02 01:36
PROVIDERS: ADMIT Internal Medicine; ATTEND Internal Medicine
DX: A41.9 Sepsis, unspecified organism (principal); N17.0 Acute kidney failure with tubular necrosis; L03.115 Cellulitis of right lower limb; Z68.43 Body mass index [BMI] 50.0-59.9, adult; E11.40 Type 2 diabetes mellitus with diabetic neuropathy, unspecified; I10 Essential (primary) hypertension; I87.8 Other specified disorders of veins; N18.9 Chronic kidney disease, unspecified; E11.22 Type 2 diabetes mellitus with diabetic chronic kidney disease; I12.9 Hypertensive chronic kidney disease with stage 1 through stage 4 chronic kidney disease, or unspecified chronic kidney disease; E66.01 Morbid (severe) obesity due to excess calories; E11.65 Type 2 diabetes mellitus with hyperglycemia; E78.5 Hyperlipidemia, unspecified; S01.01XA Laceration without foreign body of scalp, initial encounter; Z82.49 Family history of ischemic heart disease and other diseases of the circulatory system; Z91.19 Patient's noncompliance with other medical treatment and regimen; Z85.828 Personal history of other malignant neoplasm of skin; F32.9 Major depressive disorder, single episode, unspecified; G89.29 Other chronic pain; W10.8XXA Fall (on) (from) other stairs and steps, initial encounter; M19.90 Unspecified osteoarthritis, unspecified site; Z79.84 Long term (current) use of oral hypoglycemic drugs; M54.9 Dorsalgia, unspecified; Y93.89 Activity, other specified; Y92.89 Other specified places as the place of occurrence of the external cause; Y99.8 Other external cause status; Z88.8 Allergy status to other drugs, medicaments and biological substances
CPT/HCPCS: 36415; 70450; 71045; 72125; 73600; 80048; 80053; 81001; 82550; 82962; 83605; 84484; 85007; 85025; 85610; 85651; 85730; 87040; 93005; 93971; 96365; 96368; 96375; J0696; J2543; J3010; J3370; J7030; J7040; 97110; 97116; 97535; 99285-25

== ENCOUNTER → 2019-01-17 | Outpatient (CLI) | payer MEDICARE ==
[~2019-01-17] MED LIST changes: +CEPH-264 PO; +GLIP5TAB22 PO; +HYDR-3164 PO; +LIDO700A21 TD; +METF500T16 PO; +OXYB5TAB10 PO; -OXYB5TAB7 PO
--- NOTE | 2019-01-19 13:08 | PATHOLOGY ---
[facility] Accession Number: [id number] . 01 Material submitted: . toe - 3 MM X2 PUNCH BIOPSY, RT 4TH TOE LATERAL/INTERDIGITALLY. Modifiers: right, fourth, lateral . 01 Clinical history: . 3mm x2 . 02 Diagnosis: Skin, right fourth toe, punch biopsy: - Squamous epithelium with hyperkeratosis and mild chronic inflammation. - No evidence of atypia or malignancy. (SKM:claudia; 01/19/2019) QMS 01/19/2019 0930 Local . 02 Electronically signed: . Darryn Long MD, Pathologist NPI- [id number] . 01 Gross description: . The specimen is received in formalin, labeled "Tona Anderson, 4 right toe" and consists of 2 maharaj skin punch measuring 0.3 x 0.3 x 0.6 cm each. One is inked black and they are submitted intact in A1. (SDY; 01/18/2019) SYU/SYU 01/18/2019 1734 Local . 02 Pathologist provided ICD-10: L85.8, L08.9 . 02 CPT . 647450 Specimen Comment: A courtesy copy of this report has been sent to [phone], [phone] Specimen Comment: [id number] Specimen Comment: Report sent to / DR BRYANT Performed at: 01 [facility] [address], [place] [id number] MD Luke Escobar MD Phone: [phone] Performed at: 02 [facility] [address] [place], [place] [id number] MD Iggy Kohli MD Phone: [phone]
== END | disposition home or self-care (01) ==
LOC: SPEC 14:35
PROVIDERS: ATTEND Podiatrist
DX: L90.5 Scar conditions and fibrosis of skin (principal); L72.0 Epidermal cyst
CPT/HCPCS: 88305

== ENCOUNTER → 2020-03-04 | Outpatient (CLI) | payer MEDICARE ==
[~2020-03-04] MED LIST changes: +AMLO-187 PO; -AMLO10TA8 PO; +IRBE300T23 PO; -IRBE300T3 PO
--- NOTE | 2020-03-04 16:30 | KCIC ---
MRI of the lumbar spine without contrast 03/04/2020 CLINICAL HISTORY: Low back pain with left leg weakness. Urinary incontinence. TECHNIQUE: Unenhanced T1-weighted and T2-weighted sagittal and axial and inversion recovery sagittal images of the lumbar spine were obtained. FINDINGS: Comparison study is dated 01/20/2016. Minimal S-shaped curvature of the thoracolumbar spine is seen. Degenerative signal changes and varyin g loss of height are seen involving all the disks of the lumbar spine. Degenerative signal changes ar e seen within the marrow surrounding these discs. The AP diameter of the central spinal canal is narr owed likely due to congenitally short pedicles. Hemangiomas are seen involving the L2 and L3 vertebra l bodies which measure 1 cm in size. The conus medullaris is normal in position and signal characteri stics. Rounded high signal intensity lesions are seen involving the left kidney on the T2-weighted im ages. These measure 5 mm to 1 cm in size. They likely represent cysts. No further imaging evaluation is recommended. At the L1-2 disc space is a mild generalized disc bulge. Superimposed on this disc bulge is a left pa racentral focal disc herniation which extrudes superiorly. The extruded disc fragment measures 2.3 x 1.1 x 0.9 cm in craniocaudal, transverse and AP dimensions. This extends to the superior L1 level. De generative changes are seen involving the facet joints bilaterally. There is mild ligamentum flavum h ypertrophy bilaterally. Small facet joint effusions are seen bilaterally. There is prominence of the posterior epidural fat. These findings when combined result in severe left greater than right central spinal canal stenosis. Moderate to severe left greater than right central spinal canal stenosis is s een extending superiorly to the mid L1 level. No neural foraminal stenosis is seen. At the L2-3 disc space there is a mild to moderate generalized disc bulge. Degenerative changes are s een involving the facet joints bilaterally. There is moderate ligamentum flavum hypertrophy bilateral ly. There are small facet joint effusions bilaterally. There is prominence of posterior epidural fat. These findings result in severe central spinal canal stenosis no neural foraminal stenosis is seen. At the L3-4 disc space there is a moderate generalized disc bulge. Superimposed on this disc bulge is a focal central disc protrusion. This measures 4 mm in AP diameter. Degenerative changes are seen in volving the facet joints bilaterally. There is moderate ligamentum flavum hypertrophy bilaterally. Th ere are small facet joint effusions bilaterally. There is prominence of the posterior epidural fat. T hese findings when combined result in severe central spinal canal stenosis. No neural foraminal steno sis is seen. At the L4-5 disc space there is a mild generalized disc bulge. Superimposed on this disc bulge is a c entral/left paracentral focal disc herniation which extrudes superiorly to the mid L4 level. This yaw sures 6 mm in AP diameter. Degenerative changes are seen involving the facet joints bilaterally. Ther e is moderate ligamentum flavum hypertrophy bilaterally. Small to moderate-sized facet joint effusio ns are seen bilaterally. There is prominence of the posterior epidural fat. These findings when combi elvin result in moderate to severe, left greater than right, central spinal canal stenosis. Mild bilate ral neural foraminal stenosis is seen. At the L5-S1 disc space there is a mild generalized disc bulge. Degenerative changes are seen involvi ng the facet joints bilaterally. There are small facet joint effusions bilaterally. These findings wh en combined do not result in significant central spinal canal or neural foraminal stenosis. The degenerative changes have progressed since the previous study. IMPRESSION: The changes of degenerative disc disease are seen involving the lumbar spine. These findi ngs result in severe left greater than right central spinal canal stenosis at L1-2, severe central sp inal canal stenosis at L2-3 and L3-4 and moderate to severe, left greater than right, central spinal canal stenosis at L4-5. Mild bilateral neural foraminal stenosis is seen at L4-5. Electronically signed by: Gasper Paul MD (03/04/2020 4:28 PM) [place] [id number]
== END ==
LOC: KCIC MRI 14:35
PROVIDERS: ATTEND Family Medicine
DX: M51.36 Other intervertebral disc degeneration, lumbar region (principal); R29.898 Other symptoms and signs involving the musculoskeletal system; M48.061 Spinal stenosis, lumbar region without neurogenic claudication; R32 Unspecified urinary incontinence
CPT/HCPCS: 72148

== ENCOUNTER → 2020-03-31 | Outpatient (CLI) | payer MEDICARE ==
[~2020-03-31] MED LIST changes: +IOHEXOL 180 MG/ML 10 ML VIAL. ONE; -LISI-334 PO; +LISI20TA18 PO; +[UNRECOGNIZED DRUG - CODE] PO; -[UNRECOGNIZED DRUG - CODE] PO; +methylPREDNISolone ACETATE 40 MG/ML VIAL. ONE; +methylPREDNISolone ACETATE 80 MG/ML VIAL. ONE
--- NOTE | 2020-03-31 15:34 | PDOC1 ---
INITIAL PAIN CONSULT DATE OF SERVICE: DOS: DATE: 03/31/20 TIME: 15:27 CHIEF COMPLAINT: Chief Complaint: Low back and bilateral lower extremity pain HISTORY OF PRESENT ILLNESS: 74-year-old male presents history of pain low back bilateral lower extremities left slightly greater than right present for many years not the result of any one specific injury or accident but wear and tear over the years very active ingrid olmstead as younger man as well. Patient reports now the pain is getting worse over the past year in the low back bilateral lower extremities rating the posterior gluteus posterior thigh lateral thighs anterior thighs posterior calves and the knees as well worse on the left than the right patient reports intermittent intensity worse with walking standing changing positions specialist standing from a seated position generally does not like him sleep at night feels better with sitting or laying down. Patient reports does not affect his bowel bladder control does affect his ability walk he is using a walker and has a cane as well. Patient reports the pain is tingling and numb in the legs and back dull and aching sharp and shooting in the low back as well is radiating to the lower extremities again left greater than right. Patient rates his disability rating 0-10 10 being the worst as a 6 with him home responsibilities and self- care activities 8 with recreation 7 with social activity/behavior and 3 with life support activities. She has had physical therapy is still doing exercises from that also seeing chiropractor about once to twice a week over the past year as well which does help decrease the pain has had some traction done on his lumbar spine also which has been helpful as well. Patient did have MRI scan of the lumbar spine show degenerative changes with results of severe left greater than right central spinal canal stenosis L1-L2 3 and L3-4 moderate to severe left greater than right central spinal canal stenosis at L4-5 and mild bilateral neuroforaminal stenosis at L4-5 as well. Patient reports no loss of motor function but significant fatigability of the lower extremity specially with walking or standing more than about 10 minutes. Patient reports he has been decreasing his caloric intake in an effort to lose weight as well and has lost 14 pounds over the past 2 months so far. PAST MEDICAL HISTORY: PMH: Type 2 diabetes, arthritis, partial bladder incontinence, obesity, skin cancers PREVIOUS SURGERIES: Past Surgical Hx: Repair of the right fourth finger, mass removed from patient's throat CURRENT MEDICATIONS: Current Meds: Active Scripts Medications Dose Route/Sig Max Daily Dose Days Date Category Glipizide Er (Glipizide) 10 Mg Tab.er.24 1 Tab PO DAILY 03/31/20 Reported Metformin Hcl 500 Mg Tablet 500 Mg PO DAILYAC 05/02/18 Reported Garlic 400 Mg Tablet 400 Mg PO DAILY 12/16/17 Reported Calcium Citrate 250 Mg Tablet 600 Mg PO DAILY 12/16/17 Reported Centrum Silver Tablet (Multivits-Min/Fa/Lycopene/Lut) 1 Each Tablet 1 Each PO DAILY 12/16/17 Reported Irbesartan 300 Mg Tablet 300 Mg PO DAILY 12/16/17 Reported Amlodipine Besylate 10 Mg Tablet 10 Mg PO DAILY 12/16/17 Reported Paroxetine Hcl 20 Mg Tablet 1 Tab PO DAILY 12/16/17 Reported Doxazosin Mesylate 2 Mg Tablet 1 Tab PO DAILY 12/16/17 Reported ALLERGIES; Allergies: Coded Allergies: lisinopril (Unverified Allergy, Intermediate, cough/wheeze, 05/05/18) FAMILY HISTORY: Family Hx: Diabetes in paternal grandmother SOCIAL HISTORY: Social Hx: Patient is alcohol only occasionally, does not smoke or use any tobacco products the patient does not use any illegal illicit or recreational drugs is lives with his spouse lives locally [facility] and is currently retired. REVIEW OF SYSTEMS: ROS: Positive for those items mentioned in history of present illness, all systems are reviewed, otherwise negative, is complete full and well-documented on patient's chart PHYSICAL EXAM: VS: Blood pressure is 147/61 pulse 73 respirations 20 temperature 98.2 F height is 5 feet 9 inches weight is 328 pounds PE: PHYSICAL EXAMINATION: GENERAL: The patient is awake, alert, oriented, appropriate, very pleasant demeanor HEENT: Shows normocephalic, atraumatic. Extraocular movements are intact and symmetrical. Oral cavity: Mucous membranes moist and pink. Dentition is intact. NECK: Shows anterior throat supple without palpable lymphadenopathy noted. S wallow reflex symmetrical. CHEST: Shows normal on inspection. Breath sounds are clear bilaterally, distant but no rales rhonchi or wheezes auscultated. HEART: Shows S1, S2 clear. No murmurs auscultated. ABDOMEN: Soft, nontender, nondistended, obese. No palpable organomegaly is noted. No rebound or guarding demonstrated. BACK: Shows spine grossly in the midline. Normal-appearing cervical lordotic curvature. There is mildly increased thoracic kyphosis, some mild flattening of the lumbar lordotic curvature. Lumbar paraspinous muscles show symmetrical on inspection, on palpation shows some moderate tenderness diffusely throughout the upper, middle and lower distribution of the paraspinous muscles bilaterally and also into the lower thoracic paraspinous musculature, firm and tender, but without specific trigger points, without radiation of pain. The patient has good rotational motion of the lumbar spine, both laterally as well as extension and flexion without significant difficulty. No tenderness over the spinous processes, sacrum or sacroiliac regions. EXTREMITIES: Lower extremities show deep tendon reflexes 1+ in the patellar and tendo calcaneus tendons. Motor exam is 4 on a scale of 5 with right dorsiflexion, extension, quadriceps and hamstring flexion and 4/5 on the left. Peripheral pulses are 1 posterior tibial. 2+ peripheral edema is noted in the ankles to approximately one half the distance to the knee bilaterally. Lower extremities are warm and dry to touch, equal in color and appearance. The mavis mckeon is able to stand, needs assistance from rising to a standing position from seated uses his cane and his walker to do so has a slight shuffling gait does not appear to favor the right or left lower extremity significantly with ambulation, and is using his walker to ambulate. SKIN: Shows warm and dry, good turgor. No edema. No sores, rashes or bruising throughout. IMPRESSION: Impression: 74-year-old male with long history of low back and bilateral lower extremity pain worse over the past 1 year MRI scan lumbar spine as noted Obesity Diabetes Plan: Options were discussed with the patient including conservative medical management physical therapies continued chiropractic treatment and interventional techniques. Patient would like to pursue interventional techniques. We discussed a lumbar epidural steroid injection using description as well as anatomical models to describe the procedure. Risks were discussed including but not limited to: Bleeding, infection, possibility of epidural hematoma and subsequent neurological compromise, dural puncture, headaches, spinal cord and/or nerve damage, side effects of steroid medication, and poor results regarding pain control. Patient understands wished to proceed. Patient will return to the clinic in approximate 2 weeks for follow-up, was counseled as return appointment, activity level, and side effects to be aware of. Procedure is lumbar epidural steroid injection under local anesthetic using sterile prep and drape at the L5-S1 level using C-arm fluoroscopic guidance in both AP and lateral views medications injected is 120 mg Depo-Medrol + 10 mL preservative-free normal saline and 2 mL contrast- condition at discharge is stable patient tolerated procedure well had no complications. PAM HURTADO MD Mar 31, 2020 15:34
== END | disposition home or self-care (01) ==
LOC: PNCL 13:41
PROVIDERS: ATTEND Anesthesiology
DX: M54.5 Low back pain (principal); M79.605 Pain in left leg; M79.604 Pain in right leg; E11.9 Type 2 diabetes mellitus without complications; M19.90 Unspecified osteoarthritis, unspecified site; E66.9 Obesity, unspecified; I10 Essential (primary) hypertension; M10.9 Gout, unspecified; F32.9 Major depressive disorder, single episode, unspecified; Z85.828 Personal history of other malignant neoplasm of skin; Z79.84 Long term (current) use of oral hypoglycemic drugs; Z79.899 Other long term (current) drug therapy; Z98.890 Other specified postprocedural states; Z88.8 Allergy status to other drugs, medicaments and biological substances
CPT/HCPCS: 62323; J1030; J1040; Q9965